=== PATIENT | female | born 1990 | race Caucasian/White ===

== ENCOUNTER 2020-01-31 13:22 | Outpatient (REF) | payer OTHER, SELFPAY | END 2020-01-31 13:23 | disposition home or self-care (01) | LOC: HO.MDS 13:22 | PROVIDERS: PCP Family Medicine; Visit Provider Internal Medicine | DX: D50.9 Iron deficiency anemia, unspecified (principal) | CPT/HCPCS: 96365; J2916 ==

== ENCOUNTER 2020-02-21 13:03 | Outpatient (REF) | payer OTHER, SELFPAY | END 2020-02-21 13:04 | disposition home or self-care (01) | LOC: HO.MDS 13:03 | PROVIDERS: PCP Family Medicine; Visit Provider Internal Medicine | DX: D50.9 Iron deficiency anemia, unspecified (principal) | CPT/HCPCS: 96365; J2916 ==

== ENCOUNTER 2020-02-28 | Outpatient (REF) | payer OTHER, SELFPAY | END 2020-02-28 00:01 | disposition home or self-care (01) | LOC: HO.MDS | PROVIDERS: PCP Family Medicine; Visit Provider Internal Medicine | DX: D50.9 Iron deficiency anemia, unspecified (principal) | CPT/HCPCS: 96365; J2916 ==

== ENCOUNTER 2020-04-29 10:14 | Outpatient (REF) | payer OTHER, SELFPAY | END 2020-04-29 10:15 | disposition home or self-care (01) | LOC: HO.LAB 10:14 | PROVIDERS: Visit Provider Internal Medicine | DX: Z20.828 Contact with and (suspected) exposure to other viral communicable diseases (principal) | CPT/HCPCS: 36415; C9803; U0003 ==

== ENCOUNTER 2020-05-03 12:50 | Emergency (ER) | payer OTHER, SELFPAY ==
[2020-05-03 13:19] VITALS: BP 125/62; PULSE 102; RESP 20; TEMP 37.2; O2SAT 94; BMI 32.9
[2020-05-03 15:22] LABS: Basophils Percent Auto 0.2 % (0-2); Hematocrit 31.9 % (37-47); Imm Gran Abs Auto 0.05 X10*3/uL (0.00-0.03); Imm Gran Pct Auto 0.8 % (0.0-0.4); Lymphocytes Absolute Auto 0.9 X10*3/uL (1.2-4.9); Lymphocytes Percent Auto 14.1 % (20-40); MANUAL DIFF FLAG NO; Mean Corpuscular HGB Conc 34.5 g/dl (31.0-35.0); Mean Corpuscular Hemoglobin 28.8 pg (27.0-33.0); Mean Corpuscular Volume 83.5 fL (80-98); Mean Platelet Volume 8.9 fL (9.4-12.3); Monocytes Absolute Auto 0.6 X10*3/uL (0.1-1.2); Monocytes Percent Auto 9.7 % (2-11); Neutrophils Absolute Auto 4.7 X10*3/uL (2.0-8.3); Neutrophils Percent Auto 75.2 % (45-73); Platelet Count 186 X10*3/uL (160-400); Red Blood Count 3.82 X10*6/uL (4.20-5.50); Red Cell Distribution Width 15.1 % (11.0-16.0); White Blood Count 6.3 X10*3/uL (4.8-10.8)
[2020-05-03] MEDS: 0.9 % Sodium Chloride 1,000 ML 999 ML IVCONT ×2 (15:24→16:38)
[2020-05-03] MEDS: Acetaminophen 325 MG TABLET 650 MG PO (15:24)
[2020-05-03 15:45] LABS: Glucose Urine UA NEG (NEG); Leukocyte Esterase Urine TRACE (NEG); Nitrite Urine NEG (NEG); Urine Blood NEG (NEG); Urine Ketones NEG (NEG); Urine Protein NEG (NEG-TRACE)
[2020-05-03 15:46] VITALS: O2SAT 97
[2020-05-03 15:46] LABS: Appearance Urine HAZY; Color Urine YELLOW
[2020-05-03 15:54] LABS: Bacteria Urine 1+ /LPF; RBC Urine 0 /HPF (0); Squamous Epithelial Cell Urine 2+ /LPF
[2020-05-03 15:56] LABS: Alanine Aminotransferase 20 U/L (0-31); Albumin Level 3.7 g/dL (3.5-5.0); Alkaline Phosphatase 98 U/L (39-117); Anion Gap 14 (12-20); Aspartate Amino Transferase 27 U/L (5-31); Bilirubin Direct < 0.2 mg/dL (0.0-0.5); Bilirubin Total 0.2 mg/dL (0.0-1.0); Blood Urea Nitrogen 4 mg/dL (9-16); Calcium 8.5 mg/dL (8.4-10.2); Carbon Dioxide 23 mmol/L (22-29); Chloride 100 mmol/L (96-108); Creatinine Clr Calc Pharmacy 148.1; Estimated Glomerular Filt Rate > 60; Glucose Random 85 mg/dL (60-115); Potassium 4.5 mmol/l (3.3-5.1); Sodium 132 mmol/L (135-145); Total Protein 6.9 g/dL (6.5-8.0)
--- NOTE | 2020-05-03 16:04 | ED_ITS ---
HPI - General Adult General Chief complaint: Upper Respiratory Symptoms Stated complaint: covid symptoms Time Seen by Provider: 05/03/20 14:06 Source: patient Mode of arrival: ambulatory Limitations: no limitations History of Present Illness HPI narrative: Patient comes to the emergency room complaining of diffuse body aches, coughing, headache, congestion for several days. Patient is a at 19 weeks of gestational age. Patient denies any abdominal cramping, no vaginal fluid or blood leakage. Patient complaining of subjective fever. Patient also complaining of nausea and vomiting, no diarrhea. Patient states that initially during this she had hyperemesis, then it resolved, a few days ago she has been vomiting again. MD complaint: Vomiting, body aches Related Data Previous Rx's Medication Instructions Recorded metoclopramide HCl 5 mg PO TID PRN #14 tab 05/03/20 Allergies Allergy/AdvReac Type Severity Reaction Status Date / Time No Known Drug Intolerances Allergy Unknown [email or web address] Unverified 01/11/20 16:44 Review of Systems Review of Systems: Constitutional : Complaining of fever, chills, fatigue, generalized body aches ENT/Mouth : No Hearing loss, No Ear Pain, No Nasal Congestion, No Sinus Pain, No Hoarseness, No sore throat, No Rhinorrhea, No Swallowing Difficulty Eyes: No Eye Pain, No Swelling, No Redness, No Foreign Body, No Discharge, No Vision Changes Cardiovascular : No Chest Pain, No SOB, No Dyspnea on Exertion, No Orthopnea, No Edema, No Palpitations Respiratory : No Cough, No Sputum, No Wheezing, No Smoke Exposure, No Dyspnea Gastrointestinal : Complaining of nausea and vomiting No Diarrhea, No Constipation, No abdominal Pain, No Hematochezia, No Melena Genitourinary : no irregular bleeding, No Dysuria, No Urinary Frequency, No Hematuria, No Urinary Incontinence, No Urgency, No Flank Pain, No Urinary Flow Changes, No Hesitancy Musculoskeletal : No joint pain, No Myalgias, No Joint Swelling Skin : No Skin Lesions, No rash Neuro : No Weakness, No Numbness, No Paresthesias, No Loss of Consciousness, No Dizziness, No Headache Psych : No Anxiety/Panic, No Depression, No SI/HI/AH/VH, No Social Issues, Heme/Lymph: No Bruising, No Bleeding,No Lymphadenopathy Endocrine : No Polyuria, No Polydipsia, No Temperature Intolerance PMFSH Past Medical History Medical History Allergic rhinitis Anxiety and depression Chronic fatigue Iron deficiency anemia Menorrhagia with irregular cycle Family History Family History (Updated 03/08/20 @ 09:45 by Madai Jorge) Family/Other Colon cancer Maternal Aunt Colon cancer Maternal Uncle Colon cancer Maternal Grandmother Breast cancer Family/Other Thrombocytopenia Social History Social History Alcohol intake: never Smoking Status: Never smoker Use of substances other than those prescribed or required for medical reasons: No Advance Directives: No Advance Directives Information Provided: No Physical Exam Vital Signs: Vital Signs: Last Vital Signs Temp 99.0 F 05/03/20 13:19 Pulse 98 05/03/20 16:21 Resp 20 05/03/20 16:21 BP 125/62 05/03/20 13:19 Pulse Ox 97 05/03/20 15:46 Body Mass Index 32.9 Appearance: Alert. Oriented X3. No acute distress. Eyes: Pupils equal, round and reactive to light. ENT: Pharynx normal. Neck: Normal inspection. Neck supple. No lymph nodes noted. No crepitus CVS: Normal heart rate and rhythm. Pulses normal. Normal S1 and S2 Respiratory: No respiratory distress. Breath sounds normal. No Wheezing. No rales Abdomen: Soft and nontender. No rigidity. No distention. Bedside ultrasound shows good movement, heart rate 140 Skin: Skin warm and dry. Normal skin color. Normal skin turgor. Extremities: No lower extremity edema. No lower extremity edema. No Lacerations. No Rash Neuro: Oriented X 3. No motor deficit. No sensory deficit. Moving all extermities. No slurred speech. Course Course Course Narrative: I discussed with the patient that she is COVID-19 positive. Patient is not hypoxic, only having generalized body aches. Is instructed to have close follow-up with her primary care physician. Chest x-ray is unremarkable, if there are any infiltrates, patient will need antibiotics. Otherwise, patient is stable, not hypoxic, may be discharged home. Medical Decision Making Lab Data Result diagrams: 05/03/20 15:15 05/03/20 15:15 Labs: Lab Results 05/03/20 05/03/20 05/03/20 Range/Units 15:15 15:15 15:15 WBC 6.3 (4.8-10.8) X10*3/uL RBC 3.82 L (4.20-5.50) X10*6/uL Hgb 11.0 L (12.0-16.0) g/dl Hct 31.9 L (37-47) % MCV 83.5 (80-98) fL MCH 28.8 (27.0-33.0) pg MCHC 34.5 (31.0-35.0) g/dl RDW 15.1 (11.0-16.0) % Plt Count 186 (160-400) X10*3/uL MPV 8.9 L (9.4-12.3) fL Immature Gran % (Auto) 0.8 H (0.0-0.4) % Neut % (Auto) 75.2 H (45-73) % Lymph % (Auto) 14.1 L (20-40) % [place] % (Auto) 9.7 (2-11) % Eos % (Auto) 0.0 (0-4) % Baso % (Auto) 0.2 (0-2) % Lymph # (Auto) 0.9 L (1.2-4.9) X10*3/uL [place] # (Auto) 0.6 (0.1-1.2) X10*3/uL Eos # (Auto) 0.0 (0.0-0.4) X10*3/uL Baso # (Auto) 0.0 (0.0-0.2) X10*3/uL Abs Immat Gran (auto) 0.05 H (0.00-0.03) X10*3/uL Absolute Neuts (auto) 4.7 (2.0-8.3) X10*3/uL Absolute Nucleated RBC 0.000 (0.0-0.012) X10*3/uL Nucleated RBC % (auto) 0.0 (0.0-0.2) /100WBC Sodium 132 L (135-145) mmol/L Potassium 4.5 (3.3-5.1) mmol/l Chloride 100 (96-108) mmol/L Carbon Dioxide 23 (22-29) mmol/L Anion Gap 14 (12-20) BUN 4 L (9-16) mg/dL Creatinine 0.55 (0.5-1.4) mg/dL Estim Creat Clear Calc 148.1 Estimated GFR > 60 Random Glucose 85 (60-115) mg/dL Calcium 8.5 (8.4-10.2) mg/dL Ferritin 102 (10-122) ng/mL Total Bilirubin 0.2 (0.0-1.0) mg/dL Direct Bilirubin < 0.2 (0.0-0.5) mg/dL AST 27 (5-31) U/L ALT 20 (0-31) U/L Alkaline Phosphatase 98 (39-117) U/L Total Protein 6.9 (6.5-8.0) g/dL Albumin 3.7 (3.5-5.0) g/dL Procalcitonin ng/mL Urine Color Urine Appearance Urine pH (5.0-8.0) Ur Specific [place] (1.005-1.025) Urine Protein (NEG-TRACE) MG/DL Urine Glucose (UA) (NEG) MG/DL Urine Ketones (NEG) MG/DL Urine Blood (NEG) Urine Nitrite (NEG) Ur Leukocyte Esterase (NEG) Urine RBC (0) /HPF Urine WBC (0-4) /HPF Ur Squamous Epith Cells /LPF Urine Bacteria /LPF Coronavirus (PCR) (Negative) Influenza Type A (PCR) (Negative) Influenza Type B (PCR) (Negative) RSV RNA Qual (PCR) (Negative) 05/03/20 05/03/20 05/03/20 Range/Units 15:15 15:15 15:30 WBC (4.8-10.8) X10*3/uL RBC (4.20-5.50) X10*6/uL Hgb (12.0-16.0) g/dl Hct (37-47) % MCV (80-98) fL MCH (27.0-33.0) pg MCHC (31.0-35.0) g/dl RDW (11.0-16.0) % Plt Count (160-400) X10*3/uL MPV (9.4-12.3) fL Immature Gran % (Auto) (0.0-0.4) % Neut % (Auto) (45-73) % Lymph % (Auto) (20-40) % [place] % (Auto) (2-11) % Eos % (Auto) (0-4) % Baso % (Auto) (0-2) % Lymph # (Auto) (1.2-4.9) X10*3/uL [place] # (Auto) (0.1-1.2) X10*3/uL Eos # (Auto) (0.0-0.4) X10*3/uL Baso # (Auto) (0.0-0.2) X10*3/uL Abs Immat Gran (auto) (0.00-0.03) X10*3/uL Absolute Neuts (auto) (2.0-8.3) X10*3/uL Absolute Nucleated RBC (0.0-0.012) X10*3/uL Nucleated RBC % (auto) (0.0-0.2) /100WBC Sodium (135-145) mmol/L Potassium (3.3-5.1) mmol/l Chloride (96-108) mmol/L Carbon Dioxide (22-29) mmol/L Anion Gap (12-20) BUN (9-16) mg/dL Creatinine (0.5-1.4) mg/dL Estim Creat Clear Calc Estimated GFR Random Glucose (60-115) mg/dL Calcium (8.4-10.2) mg/dL Ferritin (10-122) ng/mL Total Bilirubin (0.0-1.0) mg/dL Direct Bilirubin (0.0-0.5) mg/dL AST (5-31) U/L ALT (0-31) U/L Alkaline Phosphatase (39-117) U/L Total Protein (6.5-8.0) g/dL Albumin (3.5-5.0) g/dL Procalcitonin 0.03 ng/mL Urine Color YELLOW Urine Appearance HAZY Urine pH 7.0 (5.0-8.0) Ur Specific [place] 1.020 (1.005-1.025) Urine Protein NEG (NEG-TRACE) MG/DL Urine Glucose (UA) NEG (NEG) MG/DL Urine Ketones NEG (NEG) MG/DL Urine Blood NEG (NEG) Urine Nitrite NEG (NEG) Ur Leukocyte Esterase TRACE H (NEG) Urine RBC 0 (0) /HPF Urine WBC 1-4 (0-4) /HPF Ur Squamous Epith Cells 2+ /LPF Urine Bacteria 1+ /LPF Coronavirus (PCR) POSITIVE A (Negative) Influenza Type A (PCR) NEGATIVE (Negative) Influenza Type B (PCR) NEGATIVE (Negative) RSV RNA Qual (PCR) NEGATIVE (Negative) Imaging Data Chest x-ray: Radiologist's impression: FINDINGS: No significant abnormality is noted involving the heart, lungs, mediastinum, bony thorax or soft tissues. XR/XR chest 1V IMPRESSION: Unremarkable examination. Discharge Plan Discharge Clinical Impression: COVID-19 Patient Disposition: Home, Self-Care Instructions: COVID-19 (Coronavirus Disease 2019) (ED) Additional Instructions: Please follow-up with your primary care physician tomorrow. If you have any worsening or new symptoms, please return to the emergency room or call 911 Prescriptions: New metoclopramide HCl 5 mg tablet 5 mg PO TID PRN (Reason: nausea and vomiting) Qty: 14 RF: 0
[2020-05-03 16:11] LABS: Procalcitonin 0.03 ng/mL
[2020-05-03 16:12] LABS: Ferritin 102 ng/mL (10-122)
[2020-05-03 16:21] VITALS: PULSE 98; RESP 20
[2020-05-03 16:24] LABS: Influenza A PCR NEGATIVE (Negative); Influenza B PCR NEGATIVE (Negative); Resp Syncy Virus RNA Qual PCR NEGATIVE (Negative); SARS COV2 PCR INHOUSE POSITIVE (Negative)
--- NOTE | 2020-05-03 16:34 | XR_ITS ---
EXAMINATION: XR CHEST CLINICAL INFORMATION: Covid positive COMPARISON: Previous chest x-ray October 2019 TECHNIQUE: Frontal view of the chest was obtained. FINDINGS: No significant abnormality is noted involving the heart, lungs, mediastinum, bony thorax or soft tissues. XR/XR chest 1V IMPRESSION: Unremarkable examination.
[2020-05-03] MEDS: Metoclopramide HCl 10 MG/2 ML VIAL IVPUSH (16:38)
--- NOTE | 2020-05-03 16:38 | PC.NURSE ---
medicated further per emar. [facility]ctm.
== END 2020-05-03 18:17 | disposition home or self-care (01) ==
PROVIDERS: Emergency Provider Emergency Medicine
DX: O98.519 Other viral diseases complicating pregnancy, unspecified trimester (principal); U07.1 COVID-19; M79.10 Myalgia, unspecified site; R05 Cough; Z3A.19 19 weeks gestation of pregnancy
CPT/HCPCS: 0241U; 36415; 71045; 80048; 80076; 81001; 82728; 84145; 85025; 87086; 96361; 96374; 99284; 99285; J2765

== ENCOUNTER 2020-05-13 12:01 | Outpatient (REF) | payer OTHER, SELFPAY | END 2020-05-13 12:02 | disposition home or self-care (01) | LOC: HO.LAB 12:01 | PROVIDERS: Visit Provider Internal Medicine | DX: Z20.822 Contact with and (suspected) exposure to COVID-19 (principal) | CPT/HCPCS: 36415; C9803; U0003 ==

== ENCOUNTER 2020-05-27 12:38 | Outpatient (REF) | payer OTHER, SELFPAY | END 2020-05-27 12:39 | disposition home or self-care (01) | LOC: HO.LAB 12:38 | PROVIDERS: Visit Provider Internal Medicine | DX: Z20.822 Contact with and (suspected) exposure to COVID-19 (principal) | CPT/HCPCS: 36415; C9803; U0003; U0005 ==

== ENCOUNTER 2020-09-20 12:28 | Emergency (ER) | payer OTHER, SELFPAY ==
[2020-09-20] VITALS (7 sets, daily range): BP systolic 119–174; BP diastolic 55–85; PULSE 64–77; RESP 16–18; TEMP 36.8; O2SAT 97–98; BMI 34.5
--- NOTE | 2020-09-20 12:52 | ED_ITS ---
HPI - Headache General Chief Complaint: Headache Stated Complaint: MIGRAINE Time Seen by Provider: 09/20/20 12:52 Source: patient Mode of arrival: ambulatory Limitations: no limitations History of Present Illness HPI Narrative: 29 yo female s/p days post on 09/[address] [facility] at 38.5 no issues during notes afterwards 3 to 4 days headache, LE swelling, upper abdominal pain no prior issues during other pregnancies states no prior HTN, tried to call clinic yesterday but no call back MD elicited complaint: headache Pertinent past history: other (s/p on 09/14 at 38.5) Onset (ago): day(s) (4) Onset description: gradually Location: diffuse Severity: moderate Quality & Timing: aching, dull and constant Exacerbating factors: none Relieving factors: nothing Context: occurred at rest Associated symptoms: other (upper abdominal pain, dyspnea, LE edema) Treatments prior to arrival: none Related Data Previous Rx's Medication Instructions Recorded metoclopramide HCl 5 mg PO TID PRN #14 tab 05/03/20 Allergies Allergy/AdvReac Type Severity Reaction Status Date / Time No Known Drug Intolerances Allergy Unknown [email or web address] Verified 09/20/20 12:39 Review of Systems Review of Systems: Constitutional : No Weight loss, No Fever, No Chills, pos Fatigue, No Malaise ENT/Mouth : No sore throat, No Rhinorrhea Eyes: No Eye Pain, No Swelling, No Redness Cardiovascular : No Chest Pain, pos SOB, No Dyspnea on Exertion, No Orthopnea, pos Edema, No Palpitations Respiratory : No Cough, No Sputum, No Wheezing Gastrointestinal : No Nausea, No Vomiting, No Diarrhea, No Constipation, pos abdominal Pain, No Hematochezia, No Melena Genitourinary : No Dysuria, No Urinary Frequency, No Hematuria, Musculoskeletal : No joint pain, No Myalgias, No Joint Swelling Skin : No Skin Lesions, No rash Neuro : No Weakness, No Numbness, No Dizziness, pos Headache Psych : No Anxiety/Panic, No Depression Heme/Lymph: No Bruising, No Bleeding,No Lymphadenopathy Endocrine : No Polyuria, No Polydipsia All other systems reviewed and are negative PMFSH Past Medical History Medical History Allergic rhinitis Anxiety and depression Chronic fatigue Iron deficiency anemia Menorrhagia with irregular cycle Family History Family History Family/Other Colon cancer Maternal Aunt Colon cancer Maternal Uncle Colon cancer Maternal Grandmother Breast cancer Family/Other Thrombocytopenia Social History Social History Alcohol intake: never Patient Tobacco Use Status: Never used Tobacco Use of substances other than those prescribed or required for medical reasons: No Advance Directives: Yes Advance Directives Information Provided: Yes Advance Directives on File: No Patient : No Physical Exam Vital Signs: Vital Signs: Last Vital Signs Temp 98.3 F 09/20/20 12:39 Pulse 77 09/20/20 13:48 Resp 16 09/20/20 13:48 BP 129/68 09/20/20 13:48 Pulse Ox 97 09/20/20 13:48 Body Mass Index 34.5 Appearance: Alert. Oriented X3. Mild acute distress. Anxious Eyes: Pupils equal, round and reactive to light. ENT: Pharynx normal. Neck: Normal inspection. Neck supple. CVS: Normal heart rate and rhythm. Pulses normal. Respiratory: No respiratory distress. Breath sounds normal. no rales heard Abdomen: Soft and mild epigastric ttp no rebound or guarding Skin: Skin warm and dry. pale skin color. Normal skin turgor. Extremities: pos 1+ lower extremity edema. No calf ttp Neuro: Oriented X 3. No motor deficit. No sensory deficit. Course Course Course Narrative: stat call to pharmacy for magnesium loading and continuous infusion - they are getting medications now HR in 60s IV labetalol started call to [facility] 107pm for possible transfer vs [facility] Dr. Mchugh in ED, aware of plan, send to [facility] as [facility] does not take care of severe features on magnesium post attending at [facility] agrees tranasfer to [facility] repeat call to pharmacy for magnesium 116pm call to [facility] Dr. Mchugh at bedside as well after 10mg IV labetalol BP now 139/64, will continue to monitor HR in 60s will likely give hydralazine 5mg if BP increases accepted transfer to [facility] by Dr. Geiger under Dr. Clark at 125pm BP 129/68 on DC on mag drip, given labetalol with good response so far MDM - Headache MDM Narrative Medical decision making narrative: 29 yo female uncomplicated s/p delivery on 09/14 at 38.5 here with severe features of preeclampsia upper abdominal pain, LE edema, dyspnea, headaches - stat call to OB, loading dose of IV magnesium/continuous rate, IV labetalol, plan to transfer to center with OB likely [facility] given severe features Lab Data Result diagrams: 09/20/20 13:08 Labs: Lab Results 09/20/20 09/20/20 09/20/20 Range/Units 13:08 13:08 13:08 WBC 8.1 (4.8-10.8) X10*3/uL RBC 3.74 L (4.20-5.50) X10*6/uL Hgb 10.3 L (12.0-16.0) g/dl Hct 31.4 L (37-47) % MCV 84.0 (80-98) fL MCH 27.5 (27.0-33.0) pg MCHC 32.8 (31.0-35.0) g/dl RDW 13.8 (11.0-16.0) % Plt Count 283 D (160-400) X10*3/uL MPV 9.5 (9.4-12.3) fL Immature Gran % (Auto) 0.9 H (0.0-0.4) % Neut % (Auto) 73.4 H (45-73) % Lymph % (Auto) 19.0 L (20-40) % [place] % (Auto) 5.8 (2-11) % Eos % (Auto) 0.7 (0-4) % Baso % (Auto) 0.2 (0-2) % Lymph # (Auto) 1.5 (1.2-4.9) X10*3/uL [place] # (Auto) 0.5 (0.1-1.2) X10*3/uL Eos # (Auto) 0.1 (0.0-0.4) X10*3/uL Baso # (Auto) 0.0 (0.0-0.2) X10*3/uL Abs Immat Gran (auto) 0.07 H (0.00-0.03) X10*3/uL Absolute Neuts (auto) 5.9 (2.0-8.3) X10*3/uL Absolute Nucleated RBC 0.000 (0.0-0.012) X10*3/uL Nucleated RBC % (auto) 0.0 (0.0-0.2) /100WBC PT 12.3 (10.8-13.0) SEC INR 1.0 (0.9-1.1) APTT 32.8 (24.1-38.0) SEC Magnesium 2.0 (1.6-2.6) mg/dL Total Bilirubin 0.2 (0.0-1.0) mg/dL Direct Bilirubin < 0.2 (0.0-0.5) mg/dL AST 32 H (5-31) U/L ALT 46 H (0-31) U/L Alkaline Phosphatase 193 H D (39-117) U/L Lactate Dehydrogenase 260 H (122-220) U/L Troponin I High Sens (<3.5-17.0) ng/L B-Natriuretic Peptide (<100) pg/mL Total Protein 6.5 (6.5-8.0) g/dL Albumin 3.5 (3.5-5.0) g/dL Lipase 27 (8-78) U/L Urine Color Urine Appearance Urine pH (5.0-8.0) Ur Specific [place] (1.005-1.025) Urine Protein (NEG-TRACE) MG/DL Urine Glucose (UA) (NEG) MG/DL Urine Ketones (NEG) MG/DL Urine Blood (NEG) Urine Nitrite (NEG) Ur Leukocyte Esterase (NEG) Urine RBC (0) /HPF Urine WBC (0-4) /HPF Ur Squamous Epith Cells /LPF Urine Bacteria /LPF COVID-19 (ANTHONY) (Negative) COVID-19 Clin Com 09/20/20 09/20/20 09/20/20 Range/Units 13:08 13:08 13:27 WBC (4.8-10.8) X10*3/uL RBC (4.20-5.50) X10*6/uL Hgb (12.0-16.0) g/dl Hct (37-47) % MCV (80-98) fL MCH (27.0-33.0) pg MCHC (31.0-35.0) g/dl RDW (11.0-16.0) % Plt Count (160-400) X10*3/uL MPV (9.4-12.3) fL Immature Gran % (Auto) (0.0-0.4) % Neut % (Auto) (45-73) % Lymph % (Auto) (20-40) % [place] % (Auto) (2-11) % Eos % (Auto) (0-4) % Baso % (Auto) (0-2) % Lymph # (Auto) (1.2-4.9) X10*3/uL [place] # (Auto) (0.1-1.2) X10*3/uL Eos # (Auto) (0.0-0.4) X10*3/uL Baso # (Auto) (0.0-0.2) X10*3/uL Abs Immat Gran (auto) (0.00-0.03) X10*3/uL Absolute Neuts (auto) (2.0-8.3) X10*3/uL Absolute Nucleated RBC (0.0-0.012) X10*3/uL Nucleated RBC % (auto) (0.0-0.2) /100WBC PT (10.8-13.0) SEC INR (0.9-1.1) APTT (24.1-38.0) SEC Magnesium (1.6-2.6) mg/dL Total Bilirubin (0.0-1.0) mg/dL Direct Bilirubin (0.0-0.5) mg/dL AST (5-31) U/L ALT (0-31) U/L Alkaline Phosphatase (39-117) U/L Lactate Dehydrogenase (122-220) U/L Troponin I High Sens < 3.5 (<3.5-17.0) ng/L B-Natriuretic Peptide 79 (<100) pg/mL Total Protein (6.5-8.0) g/dL Albumin (3.5-5.0) g/dL Lipase (8-78) U/L Urine Color DARK YELLOW Urine Appearance CLOUDY Urine pH 6.0 (5.0-8.0) Ur Specific [place] 1.025 (1.005-1.025) Urine Protein 2+ H (NEG-TRACE) MG/DL Urine Glucose (UA) NEG (NEG) MG/DL Urine Ketones NEG (NEG) MG/DL Urine Blood 3+ H (NEG) Urine Nitrite NEG (NEG) Ur Leukocyte Esterase 1+ H (NEG) Urine RBC TNTC H (0) /HPF Urine WBC 5-9 H (0-4) /HPF Ur Squamous Epith Cells 1+ /LPF Urine Bacteria NONE /LPF COVID-19 (ANTHONY) Negative (Negative) COVID-19 Clin Com See Note ECG Data Attestation: I personally reviewed and interpreted this ECG as follows: ECG interpretation date: 09/20/20 ECG interpretation time: 13:32 Interpretation: Rate: 62 Rhythm: NSR [place]: normal Normal P waves. Normal CESAR. Normal QRS complex. ST T wave : normal no PRADEEP qTC: normal prior studies: no acute ischemia The study has been interpreted contemporaneously by me. . Critical Care Time Critical Care Time Critical Care Time: Yes Total Critical Care Time: 60 Attestation: IV medications, medical consult, bedside reassessments, transfer to tertiary center I attest to this time spent taking care of the patient Discharge Plan Discharge Clinical Impression: Pre-eclampsia Qualifiers: Trimester: unspecified trimester Qualified Code(s): O14.90 - Unspecified pre- eclampsia, unspecified trimester Patient Disposition: Xfer [facility] Transfer Details: [facility] Prescriptions: No Action metoclopramide HCl 5 mg tablet 5 mg PO TID PRN (Reason: nausea and vomiting) Qty: 14 RF: 0
--- NOTE | 2020-09-20 13:00 | ECG_ITS ---
Test Reason : HEADACHE Blood Pressure : / mmHG Vent. Rate : 062 BPM Atrial Rate : 062 BPM P-R Int : 112 ms QRS Dur : 078 ms QT Int : 388 ms P-R-T Axes : 047 038 038 degrees QTc Int : 393 ms Normal sinus rhythm Normal ECG When compared with ECG of 18-APR-2018 01:07, No significant change was found Referred By: Tavia Titus Electronically Signed By:DIPTI PEREZ
[2020-09-20 13:16] LABS: Basophils Percent Auto 0.2 % (0-2); Eosinophils Absolute Auto 0.1 X10*3/uL (0.0-0.4); Eosinophils Percent Auto 0.7 % (0-4); Hematocrit 31.4 % (37-47); Hemoglobin 10.3 g/dl (12.0-16.0); Imm Gran Abs Auto 0.07 X10*3/uL (0.00-0.03); Imm Gran Pct Auto 0.9 % (0.0-0.4); Lymphocytes Absolute Auto 1.5 X10*3/uL (1.2-4.9); MANUAL DIFF FLAG NO; Mean Corpuscular HGB Conc 32.8 g/dl (31.0-35.0); Mean Corpuscular Hemoglobin 27.5 pg (27.0-33.0); Mean Platelet Volume 9.5 fL (9.4-12.3); Monocytes Absolute Auto 0.5 X10*3/uL (0.1-1.2); Monocytes Percent Auto 5.8 % (2-11); Neutrophils Absolute Auto 5.9 X10*3/uL (2.0-8.3); Neutrophils Percent Auto 73.4 % (45-73); Platelet Count 283 X10*3/uL (160-400); Red Blood Count 3.74 X10*6/uL (4.20-5.50); Red Cell Distribution Width 13.8 % (11.0-16.0); White Blood Count 8.1 X10*3/uL (4.8-10.8)
[2020-09-20] MEDS: Labetalol HCL 100 MG/20 ML VIAL 10 MG IVPUSH (13:18)
[2020-09-20 13:24] LABS: Prothrombin Time 12.3 SEC (10.8-13.0)
[2020-09-20 13:27] LABS: Partial Thromboplastin Time 32.8 SEC (24.1-38.0)
[2020-09-20 13:32] LABS: COVID-19 Test Negative (Negative)
--- NOTE | 2020-09-20 13:32 | PC.NURSE ---
[facility] called to see if patient would be accepted there. Spoke with Dr Ybarra. Recommended transfer to [facility] Dr Mchugh at bedside with Dr Titus and patient. Plan is to transfer to [facility], transfer line called. Awaiting accpeting MD and bed placement on [place]
--- NOTE | 2020-09-20 13:33 | P.CONOB_ITS ---
MEAT SEAFOOD ASSOCIATE - CN: HPI Data of Consult Consult date: 09/20/20 Primary Care Provider: Unknown Physician Consult Narrative Narrative: I was called on Tammy Langford who is a 29 year old female 4 days who presented the emergency room complaining of 4 day history of headache, blurring of vision, swelling, epigastric and right upper quadrant pain. The patient did not have any hypertensive complications throughout or immediate . No other complaints cc:: CC: [employer]IATION MEDICINE SPECIALIST - Review of Systems Review of Systems ROS Unobtainable: All systems reviewed & are unremarkable except as noted in HPI and below Cardiovascular: Denies Palpatations, Loss of consciousness and Chest pain Respiratory: Denies Cough, Wheezing and Shortness of breath Musculoskeletal: Denies Low back pain Gastrointestinal: Denies Heartburn, Constipation, Diarrhea, Nausea and Vomiting Genitourinary: Denies Pain with urination, Burning with urination and Urinary frequency Neurological: Denies Migranes Psychological: Denies Depression OB PMFSH Past Medical History Medical History Allergic rhinitis Anxiety and depression Chronic fatigue Iron deficiency anemia Menorrhagia with irregular cycle Family History Family History Family/Other Colon cancer Maternal Aunt Colon cancer Maternal Uncle Colon cancer Maternal Grandmother Breast cancer Family/Other Thrombocytopenia Social History Social History Alcohol intake: never Advance Directives: Yes Advance Directives Information Provided: Yes Advance Directives on File: No Patient : No Meds Allergies Allergy/AdvReac Type Severity Reaction Status Date / Time No Known Drug Intolerances Allergy Unknown [email or web address] Verified 09/20/20 12:39 Active Medications: Current Medications Generic Name Dose Route Start Last Admin Trade Name Freq PRN Reason Stop Dose Admin Magnesium Sulfate 20 gm in 500 mls @ 25 mls/hr 09/20/20 13:22 IV 09/21/20 09:21 NOW STA MEAT SEAFOOD ASSOCIATE Physical Exam Vitals Vital signs: Temp Pulse Resp BP Pulse Ox 98.3 F 70 16 139/64 98 09/20/20 12:39 09/20/20 13:30 09/20/20 13:30 09/20/20 13:30 09/20/20 13:30 Body Mass Index 34.5 Constitutional General Appearance: Healthy appearing, Well-nourished and Well-developed Psychiatric Mood and Affect: active and alert, normal mood and normal affect Skin Appearance: No rashes and No lesions Lungs Respiratory Effort: No intercostal retractions Auscultation: Clear to auscultation Cardiovascular Auscultation: RRR Abdomen Auscultation/Inspection/Palpation: Normal bowel sounds, Soft, Non-distended and Tenderness (Epigastric and right upper quadrant tenderness) Female Genitalia (Pelvic) Exam: Deferred Additional Comments: Lower extremity +3 edema MEAT SEAFOOD ASSOCIATE - Results Labs CBC & Chem 7: 09/20/20 13:08 Labs: Short CBC 09/20/20 Range/Units 13:08 WBC 8.1 (4.8-10.8) X10*3/uL Hgb 10.3 L (12.0-16.0) g/dl Hct 31.4 L (37-47) % Plt Count 283 D (160-400) X10*3/uL Assessment and Plan (1) Preeclampsia in period: Status: Acute PIH workup, labetolol 20 mg IV now , repeat BP in 10 min if in the severe range =>160/and / or 110, Labetolol 40 mg IV or hydralazine 5 mg depending on the heart rate, BP q 10 in x1, Q15 in x1, q 30 x1 and Q1 x 4 hours afterwardrs, start MgSO4 4 g loading dose, 2 g/.hr, Lilly catheterr, total in 120 cc/hr, I/O, transfer to [facility] patient was accepted. Discussed the case with Dr. Tavia Titus in the emergency room
--- NOTE | 2020-09-20 13:36 | PC.NURSE ---
This RN to bedside with Dr Titus and Dr Mchugh. Pt warm to touch, skin pale and clammy. Pt hypertensive, NSR on monitor rate 60-702. Pt tearful and reassured. Reports no headache at this time but states blurred vision but also rpeorts usually wars glasses. Mild BLE edema noted. Two IV lines established, labs sent. COVID now obtained. Magnesiums 4 gm given as ordered and Labtalol given for BP control. Plan for [facility] transfer
[2020-09-20 13:39] LABS: Alanine Aminotransferase 46 U/L (0-31); Albumin Level 3.5 g/dL (3.5-5.0); Alkaline Phosphatase 193 U/L (39-117); Aspartate Amino Transferase 32 U/L (5-31); Bilirubin Direct < 0.2 mg/dL (0.0-0.5); Bilirubin Total 0.2 mg/dL (0.0-1.0); Lactate Dehydrogenase 260 U/L (122-220); Lipase 27 U/L (8-78); Total Protein 6.5 g/dL (6.5-8.0)
[2020-09-20 13:40] LABS: Glucose Urine UA NEG (NEG); Leukocyte Esterase Urine 1+ (NEG); Nitrite Urine NEG (NEG); Specific Gravity - Urine 1.025 (1.005-1.025); UACC Culture Trigger YES; Urine Blood 3+ (NEG); Urine Ketones NEG (NEG); Urine Protein 2+ MG/DL (NEG-TRACE)
[2020-09-20 13:42] LABS: Appearance Urine CLOUDY; Color Urine DARK YELLOW
[2020-09-20 13:45] LABS: B Type Natriuretic Peptide 79 pg/mL (<100); Troponin-I High Sensitivity < 3.5 ng/L (<3.5-17.0)
--- NOTE | 2020-09-20 13:49 | PC.NURSE ---
[facility] [phone]
[2020-09-20 13:53] LABS: RBC Urine TNTC /HPF (0); Squamous Epithelial Cell Urine 1+ /LPF
--- NOTE | 2020-09-20 14:11 | PC.NURSE ---
Pt transported via EMS. Report given to receiving nurse Cherise, Rn at [facility]
== END 2020-09-20 14:14 | disposition short-term general hospital (02) ==
PROVIDERS: Emergency Provider Emergency Medicine
DX: O14.95 Unspecified pre-eclampsia, complicating the puerperium (principal); Z20.822 Contact with and (suspected) exposure to COVID-19; R51.9 Headache, unspecified; R60.0 Localized edema
CPT/HCPCS: 36415; 80076; 81001; 81003; 83615; 83690; 83735; 83880; 84484; 85025; 85610; 85730; 87086; 87635; 93005; 96365; 96366; 96374; 99285; 99291; J3475

== ENCOUNTER → 2021-03-06 11:28 | Outpatient (BNV) | payer OTHER, SELFPAY | PROVIDERS: PCP Nurse Practitioner; Visit Provider Internal Medicine | DX: D50.9 Iron deficiency anemia, unspecified (principal) | CPT/HCPCS: 99213; 99214 ==

== ENCOUNTER 2021-03-27 08:23 | Outpatient (REF) | payer OTHER, SELFPAY | END 2021-03-27 08:24 | disposition home or self-care (01) | LOC: HO.MDS 08:23 | PROVIDERS: PCP Nurse Practitioner; Visit Provider Internal Medicine | DX: D50.9 Iron deficiency anemia, unspecified (principal); F41.8 Other specified anxiety disorders | CPT/HCPCS: 96365; 96366; J1200; J1750; Q0163 ==

== ENCOUNTER 2021-04-08 12:35 | Outpatient (REF) | payer OTHER, SELFPAY ==
[2021-04-08 13:13] LABS: COVID-19 Test Negative (Negative)
== END 2021-04-08 12:36 | disposition home or self-care (01) ==
LOC: HO.LAB 12:35
PROVIDERS: Visit Provider Internal Medicine
DX: Z20.822 Contact with and (suspected) exposure to COVID-19 (principal)
CPT/HCPCS: 36415; 87635; C9803

== ENCOUNTER 2021-07-19 18:13 | Emergency (ER) | payer OTHER, SELFPAY ==
[2021-07-19 18:24] VITALS: BP 130/77; PULSE 84; RESP 16; TEMP 36.8; O2SAT 99; BMI 35.1
--- NOTE | 2021-07-19 19:57 | ED_ITS ---
HPI - Headache General Chief Complaint: Headache Stated Complaint: migrane since wednesday/coughing Time Seen by Provider: 07/19/21 19:57 Source: patient Mode of arrival: ambulatory Limitations: no limitations History of Present Illness HPI Narrative: Patient history of migraines takes sumatriptan been having headache for last 5 days localized mostly on the right side as usual in the past with light sensitivity and nausea patient took her to trip and today also without much relief no head injury no fever Related Data Home Medications Medication Instructions Recorded Confirmed clonazepam 1 mg tablet 1 tab PO BID PRN 03/06/21 06/09/21 ibuprofen 800 mg tablet 1 tab PO TID 03/06/21 06/09/21 sumatriptan succinate 50 mg tablet 50 mg PO BID PRN 03/06/21 06/09/21 venlafaxine 37.5 mg 1 cap PO DAILY 03/06/21 06/09/21 capsule,extended release 24 hr Previous Rx's Medication Instructions Recorded sgulbmavyj-fgjpzakmorosx-hgnwwbpk 1 cap PO Q6H PRN #20 cap 07/19/21 50 mg-300 mg-40 mg capsule (Fioricet) Allergies Allergy/AdvReac Type Severity Reaction Status Date / Time No Known Drug Intolerances Allergy Unknown nkda Verified 07/19/21 18:24 Review of Systems Review of Systems: Yes all other systems are reviewed and are negative PMFSH Past Medical History Medical History Allergic rhinitis Anxiety and depression delivery delivered Chronic fatigue Iron deficiency anemia Menorrhagia with irregular cycle Surgical History Hx of appendectomy Hx of tonsillectomy Family History Family History Family/Other Colon cancer Maternal Aunt Colon cancer Maternal Uncle Colon cancer Maternal Grandmother Breast cancer Family/Other Thrombocytopenia Family/Other Liver cancer Social History Social History Alcohol intake: never Patient Tobacco Use Status: Never used Tobacco Advance Directives: No Advance Directives Information Provided: No Physical Exam Vital Signs: Vital Signs: Last Vital Signs Temp 98.3 F 07/19/21 18:24 Pulse 84 07/19/21 18:24 Resp 16 07/19/21 18:24 BP 130/77 07/19/21 18:24 Pulse Ox 99 07/19/21 18:24 BMI result Body Mass Index 35.1 Appearance: Alert. Oriented X3. No acute distress. Eyes: PERRLA, No Nystagmus ENT: Pharynx normal. Oral Mucosa moist no temporal artery tenderness Neck: Normal inspection. Neck supple. CVS: Normal heart rate and rhythm. Pulses normal. Respiratory: No respiratory distress. Equal air entry bilateral, no wheezing/ rales/rhonchi Abdomen: Soft and nontender. Bowel sounds are present, no mass palpable, no CVA tenderness Skin: Skin warm and dry. Normal skin color. Normal skin turgor. Extremities: No lower extremity edema. No calf tenderness Neuro: Oriented X 3. No motor deficit. No sensory deficit.No cerebellar signs , cranial nerves II-XII intact MDM - Headache MDM Narrative Medical decision making narrative: Patient responded to medications felt better discharge without any headache will discharge patient home on Fioricet Differential Diagnosis Differential diagnosis: Likely migraine Lab Data Labs: Lab Results 07/19/21 Range/Units 19:34 COVID-19 (ANTHONY) Negative (Negative) COVID-19 Clin Com See Note Discharge Plan Discharge Clinical Impression: Migraine Patient Disposition: Home, Self-Care Instructions: Migraine Headache (ED) Additional Instructions: Rest at home Continue medication for migraine headaches Fioricet 1 tablet every 6 hours for persistent headache Prescriptions: New hoplacwlir-haadinccxmnup-tzri [Fioricet] 50-300-40 mg capsule 1 cap PO Q6H PRN (Reason: headache) Qty: 20 0RF No Action venlafaxine 37.5 mg capsule,extended release 24hr 1 cap PO DAILY 0RF clonazepam 1 mg tablet 1 tab PO BID PRN (Reason: Anxiety) 0RF sumatriptan succinate 50 mg tablet 50 mg PO BID PRN (Reason: Headache) 0RF Rx Instructions: Take 1 tab for migraine HAWKINS, may repeat dose after 3 hrs if needed ibuprofen 800 mg tablet 1 tab PO TID 0RF Interventions: ED Discharge Assessment Last Done: 07/19/21 21:31
[2021-07-19 20:04] LABS: COVID-19 Test Negative (Negative)
[2021-07-19] MEDS: Ketorolac Tromethamine 30 MG/ML VIAL IVPUSH (20:15)
[2021-07-19] MEDS: Metoclopramide HCl 10 MG/2 ML VIAL IVPUSH (20:15)
[2021-07-19] MEDS: diphenhydrAMINE HCL 50 MG/ML VIAL 25 MG IVPUSH (20:15)
== END 2021-07-19 21:33 | disposition home or self-care (01) ==
PROVIDERS: Emergency Provider Internal Medicine; PCP Nurse Practitioner
DX: G43.909 Migraine, unspecified, not intractable, without status migrainosus (principal); Z20.822 Contact with and (suspected) exposure to COVID-19; D50.9 Iron deficiency anemia, unspecified; Z79.899 Other long term (current) drug therapy
CPT/HCPCS: 87635; 96374; 96375; 99283; 99284; J1200; J1885; J2765

== ENCOUNTER 2021-11-20 12:57 | Outpatient (REF) | payer OTHER, SELFPAY ==
--- NOTE | 2021-11-20 | PFT_ITS ---
FLOWS: FEV1 103% of predicted at 3.06 L. FVC 100% of predicted at 3.51 L. FEV1 to FVC ratio of 0.87. No bronchodilator response except in small to medium airways. LUNG VOLUMES: Total lung capacity 92% of predicted at 4.39 L. Residual volume 63% of predicted at 0.84 L. Slow vital capacity 103% of predicted at 3.55 L. Expiratory reserve volume 78% of predicted at 0.99 L. Diffusion capacity is normal. IMPRESSION: No obstructive or restrictive ventilatory defect. No bronchodilator response except in small to medium airways. Javi Moura MD AP/MODL / [id number]
== END 2021-11-20 12:58 | disposition home or self-care (01) ==
LOC: HO.RESP 12:57
PROVIDERS: PCP Nurse Practitioner; Visit Provider Nurse Practitioner
DX: R06.02 Shortness of breath (principal)
CPT/HCPCS: 94060; 94727; 94729

== ENCOUNTER 2022-07-13 12:06 | Emergency (ER) | payer OTHER, SELFPAY ==
--- NOTE | ~2022-07-13 | CT_ITS ---
EXAMINATION: CT HEAD WITHOUT CONTRAST CLINICAL INFORMATION: Severe headache. COMPARISON: None. TECHNIQUE: Contiguous axial imaging was performed from the skullbase to vertex without intravenous administration of contrast. This CT examination was performed using dose optimization techniques as appropriate, variously including the following: *Automated exposure control *Adjustment of mA and/or kV according to patient size (this includes techniques or standardized protocols for targeted exams where dose is matched to indication/reason for exam; i.e. extremities or head) *Use of iterative reconstruction technique DLP: 670 mGy-cm. FINDINGS: There is no evidence of acute intracranial hemorrhage or territorial infarction. No abnormal mass effect or midline shift is seen. Flower to white matter differentiation is well preserved. No extra-axial fluid collections are identified. The ventricles are normal in size. There is no abnormal attenuation within the brain parenchyma. The osseous structures and soft tissues are normal. The mastoid air cells are well aerated. There is a 2 cm retention cyst in the left sphenoid sinus and mild mucosal thickening in the posterior ethmoid air cells. CT/CT head/brain wo IV con IMPRESSION: No acute intracranial pathology.
--- NOTE | 2022-07-13 12:23 | ED.HA ---
HPI - Headache General Chief Complaint: Headache <BRADY Floyd - Last Filed: 07/13/22 12:27> Stated Complaint: Migraine x3 Days <BRADY Floyd - Last Filed: 07/13/22 12:27> Time Seen by Provider: 07/13/22 16:00 <BRADY Floyd - Last Filed: 07/13/22 12:27> Source: patient <Jacqueline Tejeda NP - Last Filed: 07/13/22 17:07> Mode of arrival: ambulatory <Jacqueline Tejeda NP - Last Filed: 07/13/22 17:07> Limitations: no limitations <Jacqueline Tejeda NP - Last Filed: 07/13/22 17:07> History of Present Illness HPI Narrative: 31-year-old female presents with 3 days of a migraine headache. Reports that she also has right-sided eye drooping and hearing which is new for her. <Jacqueline Tejeda NP - Last Filed: 07/13/22 17:07> MD elicited complaint: migraine <Jacqueline Tejeda NP - Last Filed: 07/13/22 17:07> Onset (ago): day(s) (3) <Jacqueline Tejeda NP - Last Filed: 07/13/22 17:07> Onset description: gradually <Jacqueline Tejeda NP - Last Filed: 07/13/22 17:07> Location: right <Jacqueline Tejeda NP - Last Filed: 07/13/22 17:07> Severity: severe <Jacqueline Tejeda NP - Last Filed: 07/13/22 17:07> Pain scale (0-10): 10 <Jacqueline Tejeda NP - Last Filed: 07/13/22 17:07> Quality & Timing: throbbing, squeezing, constant, pressure and different than previous headaches <Jacqueline Tejeda NP - Last Filed: 07/13/22 17:07> Exacerbating factors: none <Jacqueline Tejeda NP - Last Filed: 07/13/22 17:07> Relieving factors: nothing <Jacqueline Tejeda NP - Last Filed: 07/13/22 17:07> Context: occurred at rest <Jacqueline Tejeda NP - Last Filed: 07/13/22 17:07> Associated symptoms: photophobia, sensitivity to sound and eye pain <Jacqueline Tejeda NP - Last Filed: 07/13/22 17:07> Treatments prior to arrival: acetaminophen, ibuprofen, prescription analgesic and migraine medication <Jacqueline Tejeda NP - Last Filed: 07/13/22 17:07> Related Data Home Medications: Home Medications Medication Instructions Recorded Confirmed clonazepam 1 mg tablet 1 tab PO BID PRN Anxiety 03/06/21 06/16/22 ibuprofen 800 mg tablet 1 tab PO TID 03/06/21 06/16/22 sumatriptan succinate 50 mg tablet 50 mg PO BID PRN Headache 03/06/21 06/16/22 (Imitrex) venlafaxine 37.5 mg 1 cap PO DAILY 03/06/21 06/16/22 capsule,extended release 24 hr (Effexor XR) diphenhydramine HCl 25 mg capsule 2 cap PO Q4-6H PRN itch 06/16/22 06/16/22 (Banophen) docusate sodium 100 mg capsule 1 cap PO BID 06/16/22 06/16/22 ferrous sulfate 325 mg (65 mg 1 tab PO BID 06/16/22 06/16/22 iron) tablet Previous Rx's Medication Instructions Recorded ugezjvfgna-sydqqqwrvtoiz-sbgvwftv 1 cap PO Q4-6H PRN migraine 07/13/22 50 mg-300 mg-40 mg capsule headache #10 caps (Fioricet) diphenhydramine HCl 25 mg capsule 25 mg PO TID PRN nausea and 07/13/22 (Benadryl) vomiting #10 caps metoclopramide HCl 10 mg tablet 10 mg PO Q6H PRN nausea and 07/13/22 (Reglan) vomiting #10 tabs <BRADY Floyd - Last Filed: 07/13/22 12:27> Allergies/Adverse Reactions: Allergies Allergy/AdvReac Type Severity Reaction Status Date / Time No Known Drug Intolerances Allergy Unknown nkda Verified 07/19/21 18:24 <BRADY Floyd - Last Filed: 07/13/22 12:27> Review of Systems Review of Systems: Constitutional: No Fever, No Chills Cardiovascular: No Chest Pain, No SOB Respiratory: No Cough, No Dyspnea Gastrointestinal: Positive Nausea, No Vomiting, No Diarrhea, No abdominal Pain Genitourinary: No Dysuria, No Hematuria Musculoskeletal: No joint pain, No Myalgias, No Joint Swelling Skin: No Skin lacerations, No rash Neuro: No Weakness, No Numbness, No Paresthesias, No Loss of Consciousness, No Dizziness, positive Headache <Jacqueline Tejeda NP - Last Filed: 07/13/22 17:07> Yes all other systems are reviewed and are negative <Jacqueline Tejeda NP - Last Filed: 07/13/22 17:07> FOR[facility]LY [facility], [facility] Past Medical History Attestation statement: The following information was validated with the patient. <Jacqueline Tejeda NP - Last Filed: 07/13/22 17:07> Source: old records reviewed <Jacqueline Tejeda NP - Last Filed: 07/13/22 17:07> Medical History: Medical History Allergic rhinitis Anxiety and depression delivery delivered Chronic fatigue Iron deficiency anemia Menorrhagia with irregular cycle <BRADY Floyd - Last Filed: 07/13/22 12:27> Surgical History: Surgical History Hx of appendectomy Hx of tonsillectomy <BRADY Floyd - Last Filed: 07/13/22 12:27> Family History Family History: Family History Family/Other Colon cancer Maternal Aunt Colon cancer Maternal Uncle Colon cancer Maternal Grandmother Breast cancer Family/Other Thrombocytopenia Family/Other Liver cancer <BRADY Floyd - Last Filed: 07/13/22 12:27> Social History Social History: Social History Household Members: Children Housing: Apartment Alcohol intake: unknown Patient Tobacco Use Status: Never used Tobacco Smoked in Last 30 Days: No Use of substances other than those prescribed or required for medical reasons: Unknown Advance Directives: No Advance Directives Information Provided: No Patient : No service: No Current occupational status: unemployed <BRADY Floyd - Last Filed: 07/13/22 12:27> Physical Exam Vital Signs: Vital Signs: Last Vital Signs Temp 98.3 F 07/13/22 16:00 Pulse 70 07/13/22 16:00 Resp 18 07/13/22 16:00 BP 130/77 07/13/22 16:00 Pulse Ox 100 07/13/22 16:00 O2 Del Method 07/13/22 16:00 BMI result Body Mass Index 35.1 <BRADY Floyd - Last Filed: 07/13/22 12:27> Vital Signs: Last Vital Signs Temp 98.3 F 07/13/22 16:00 Pulse 70 07/13/22 16:00 Resp 18 07/13/22 16:00 BP 130/77 07/13/22 16:00 Pulse Ox 100 07/13/22 16:00 O2 Del Method 07/13/22 16:00 BMI result Body Mass Index 35.1 <Jacqueline Tejeda NP - Last Filed: 07/13/22 17:07> Appearance: Alert. Oriented X3. And distress. Eyes: Pupils equal, round and reactive to light. ENT: Pharynx normal. Neck: Normal inspection. Neck supple. CVS: Normal heart rate and rhythm. Respiratory: No respiratory distress. Skin: Skin warm and dry. Normal skin color. Normal skin turgor. Extremities: No lower extremity edema. Gait balance and coordinated. Neuro: No motor deficit. No sensory deficit. Cranial nerves 2-12 intact. <Jacqueline Tejeda NP - Last Filed: 07/13/22 17:07> Course Course Course Narrative: This is an RME: Additional HPI, ROS, PE not included below will be deferred to primary provider. 31-year-old female with history of migraines presenting to the emergency department 3 days a migraine, tells me that this feels like her typical migraine. Patient tells me she is followed by specialist for migraines take sumatriptan however is not helping. Tells me that she can not see out of her right high as it feels like a lazy eye this started with the onset of migraine 3 days ago. No recent imaging of head. Denies fevers, chills. Physical exam patient appears uncomfortable. No meningeal signs. Normal cerebellar function. NIH stroke scale 0. Unremarkable exam. Plan medications, will give Reglan, Benadryl, Toradol, sumatriptan. Will obtain head CT. <BRADY Floyd - Last Filed: 07/13/22 12:27> This is an RME: Additional HPI, ROS, PE not included below will be deferred to primary provider. 31-year-old female with history of migraines presenting to the emergency department 3 days a migraine, tells me that this feels like her typical migraine. Patient tells me she is followed by specialist for migraines take sumatriptan however is not helping. Tells me that she can not see out of her right high as it feels like a lazy eye this started with the onset of migraine 3 days ago. No recent imaging of head. Denies fevers, chills. Physical exam patient appears uncomfortable. No meningeal signs. Normal cerebellar function. NIH stroke scale 0. Unremarkable exam. Plan medications, will give Reglan, Benadryl, Toradol, sumatriptan. Will obtain head CT. 16:10 31-year-old female presents for migraines, states that this migraine is different than her prior because her right eye feels a droopy and has had significant tearing. She does receive his sumatriptan and Banophen from a neurologist for chronic migraines. States that she took ykgv-ikl-xdgbwxa medications in conjunction with prescribed medications with poor effect. Provider in triage ordered head CT which is negative for acute findings. Patient is receiving medications upon my assessment. Patient is neurovascularly intact, afebrile, and able to speak in complete sentences without difficulty. NIH stroke scale 0. Nicholas coma scale 15. 16:45 patient states feel much better, and her headache is virtually gone. Will give Fioricet and Reglan for home usage. Patient does understand that she should take Benadryl with Reglan. She also knows that she must follow up with her prior specialist to update them that medications that they prescribed her not effective. Patient verbalized understanding of discharge instructions. Verbalized understandings of signs and symptoms indicating need for emergent intervention. <Jacqueline Tejeda NP - Last Filed: 07/13/22 17:07> Medications Administered Discontinued Medications Generic Name Dose Route Start Last Admin Trade Name Freq PRN Reason Stop Dose Admin Diphenhydramine HCl 50 mg 07/13/22 12:26 07/13/22 16:14 Diphenhydramine Hcl 50 Mg/Ml Vial IVPUSH 07/13/22 12:27 50 mg ONCE ONE Administration Ketorolac Tromethamine 30 mg 07/13/22 12:19 07/13/22 16:16 Ketorolac Tromethamine 15 Mg/Ml Vial IM 07/13/22 12:20 30 mg ONCE ONE Administration Metoclopramide HCl 10 mg 07/13/22 12:26 07/13/22 16:18 Metoclopramide Hcl 10 Mg/2 Ml Vial IVPUSH 07/13/22 12:27 10 mg ONCE ONE Administration <BRADY Floyd - Last Filed: 07/13/22 12:27> Medications Administered Discontinued Medications Generic Name Dose Route Start Last Admin Trade Name Freq PRN Reason Stop Dose Admin Diphenhydramine HCl 50 mg 07/13/22 12:26 07/13/22 16:14 Diphenhydramine Hcl 50 Mg/Ml Vial IVPUSH 07/13/22 12:27 50 mg ONCE ONE Administration Ketorolac Tromethamine 30 mg 07/13/22 12:19 07/13/22 16:16 Ketorolac Tromethamine 15 Mg/Ml Vial IM 07/13/22 12:20 30 mg ONCE ONE Administration Metoclopramide HCl 10 mg 07/13/22 12:26 07/13/22 16:18 Metoclopramide Hcl 10 Mg/2 Ml Vial IVPUSH 07/13/22 12:27 10 mg ONCE ONE Administration <Jacqueline Tejeda NP - Last Filed: 07/13/22 17:07> Medical Decision Making Differential Diagnosis Differential Diagnoses: The differential diagnosis associated with the presentation includes <Jacqueline Tejeda NP - Last Filed: 07/13/22 17:07> CVA, subdural, migraine <Jacqueline Tejeda NP - Last Filed: 07/13/22 17:07> Independent Interpretation I performed an independent interpretation of an: CT Scan <Jacqueline Tejeda NP - Last Filed: 07/13/22 17:07> Radiology Impression Discussion of test interpretation with radiology: I have reviewed the radiologist's reading. <Jacqueline Tejeda NP - Last Filed: 07/13/22 17:07> Radiologist Impression: EXAMINATION: CT HEAD WITHOUT CONTRAST CLINICAL INFORMATION: Severe headache. COMPARISON: None. TECHNIQUE: Contiguous axial imaging was performed from the skullbase to vertex without intravenous administration of contrast. This CT examination was performed using dose optimization techniques as appropriate, variously including the following: *Automated exposure control *Adjustment of mA and/or kV according to patient size (this includes techniques or standardized protocols for targeted exams where dose is matched to indication/reason for exam; i.e. extremities or head) *Use of iterative reconstruction technique DLP: 670 mGy-cm. FINDINGS: There is no evidence of acute intracranial hemorrhage or territorial infarction. No abnormal mass effect or midline shift is seen. Flower to white matter differentiation is well preserved. No extra-axial fluid collections are identified. The ventricles are normal in size. There is no abnormal attenuation within the brain parenchyma. The osseous structures and soft tissues are normal. The mastoid air cells are well aerated. There is a 2 cm retention cyst in the left sphenoid sinus and mild mucosal thickening in the posterior ethmoid air cells. CT/CT head/brain wo IV con IMPRESSION: No acute intracranial pathology. <SHERMAN Pat Last Filed: 07/13/22 17:07> External Record Review External record reviewed: Inpatient record, Outpatient record, Prior outpatient labs and Prior outpatient radiology <SHERMAN Pat Last Filed: 07/13/22 17:07> Prescription Management I considered prescription management with: Pain Medication <Jacqueline Tejeda NP - Last Filed: 07/13/22 17:07> Discharge Plan Discharge Clinical Impression: Migraine, Tension headache, Nausea, Vomiting <BRADY Floyd - Last Filed: 07/13/22 12:27> Patient Disposition: Home, Self-Care <BRADY Floyd Last Filed: 07/13/22 12:27> Instructions: Migraine Headache (ED), Acute Nausea and Vomiting (ED) <BRADY Floyd Last Filed: 07/13/22 12:27> Additional Instructions: You were evaluated for migraine headache unrelieved by the med patient that were due by your prior provider. Please request an appointment with that specialist to evaluate your medication regimen For migraine regimen, I prescribed Reglan for nausea. Take this medication as needed. Take this medication with 25 mg of Benadryl to help reduce side effects. Please take Fioricet as directed. Thank you for choosing this emergency department for evaluation. Please follow-up with primary care physician as needed. Return to the emergency department for any new, concerning, or worsening symptoms. <BRADY Floyd - Last Filed: 07/13/22 12:27> Prescriptions: New emhiatruza-itapoxucpdenl-tsbr [Fioricet] 50-300-40 mg capsule 1 cap PO Q4-6H PRN (Reason: migraine headache) Qty: 10 0RF metoclopramide HCl [Reglan] 10 mg tablet 10 mg PO Q6H PRN (Reason: nausea and vomiting) Qty: 10 0RF diphenhydramine HCl [Benadryl] 25 mg capsule 25 mg PO TID PRN (Reason: nausea and vomiting) Qty: 10 0RF Rx Instructions: Take with Reglan. No Action venlafaxine [Effexor XR] 37.5 mg capsule,extended release 24hr 1 cap PO DAILY clonazepam 1 mg tablet 1 tab PO BID PRN (Reason: Anxiety) sumatriptan succinate [Imitrex] 50 mg tablet 50 mg PO BID PRN (Reason: Headache) Rx Instructions: Take 1 tab for migraine HAWKINS, may repeat dose after 3 hrs if needed ibuprofen 800 mg tablet 1 tab PO TID diphenhydramine HCl [Banophen] 25 mg capsule 2 cap PO Q4-6H PRN (Reason: itch) ferrous sulfate 325 mg (65 mg iron) tablet 1 tab PO BID docusate sodium 100 mg capsule 1 cap PO BID <BRADY Floyd - Last Filed: 07/13/22 12:27>
[2022-07-13 12:24] VITALS: BP 145/79; PULSE 70; RESP 18; TEMP 36.2; O2SAT 99; BMI 35.1
[2022-07-13 16:00] VITALS: BP 130/77; PULSE 70; RESP 18; TEMP 36.8; O2SAT 100
[2022-07-13] MEDS: diphenhydrAMINE HCL 50 MG/ML VIAL IVPUSH (16:14)
[2022-07-13] MEDS: Ketorolac Tromethamine 15 MG/ML VIAL 30 MG IM (16:16)
[2022-07-13] MEDS: Metoclopramide HCl 10 MG/2 ML VIAL IVPUSH (16:18)
--- NOTE | 2022-07-13 16:20 | PC.NURSE ---
medicated per [facility] service specialist verbal order. vss. medication order placed by [facility] provider and was unable to be administered by nursing prior to arrival in room at 1600.
== END 2022-07-13 17:16 | disposition home or self-care (01) ==
PROVIDERS: Emergency Provider Emergency Medicine; PCP Nurse Practitioner
DX: G43.909 Migraine, unspecified, not intractable, without status migrainosus (principal); G44.209 Tension-type headache, unspecified, not intractable; R11.2 Nausea with vomiting, unspecified; D50.9 Iron deficiency anemia, unspecified
CPT/HCPCS: 70450; 96372; 96374; 96375; 99284; J1200; J1885; J2765

== ENCOUNTER 2022-11-18 09:29 | Outpatient (REF) | payer OTHER, SELFPAY ==
--- NOTE | 2022-11-18 09:35 | EMG_ITS ---
Please see scanned EMG / Nerve Conduction Report. MTDD
== END 2022-11-18 09:30 | disposition home or self-care (01) ==
LOC: HO.NEURO 09:29
PROVIDERS: PCP Nurse Practitioner; Visit Provider Registered Nurse
DX: R20.0 Anesthesia of skin (principal); R20.2 Paresthesia of skin
CPT/HCPCS: 95885; 95910

== ENCOUNTER 2022-12-03 18:08 | Emergency (ER) | payer OTHER, SELFPAY | END 2022-12-03 19:50 | disposition left against medical advice (07) | PROVIDERS: Emergency Provider Emergency Medicine | DX: N93.9 Abnormal uterine and vaginal bleeding, unspecified (principal) ==

== ENCOUNTER 2023-01-26 16:24 | Emergency (ER) | payer OTHER, SELFPAY ==
--- NOTE | ~2023-01-26 | XR_ITS ---
EXAMINATION: XR CHEST CLINICAL INFORMATION: Chest pain The patient is COMPARISON: Frontal view 05/03/20 TECHNIQUE: Frontal view of the chest was obtained. FINDINGS: The mediastinum, sonam, vasculature, lungs and visualized pleural margins are within normal limits. XR/XR chest 1V IMPRESSION: No acute chest disease
--- NOTE | 2023-01-26 16:25 | ECG_ITS ---
Test Reason : CP Blood Pressure : / mmHG Vent. Rate : 079 BPM Atrial Rate : 079 BPM P-R Int : 130 ms QRS Dur : 080 ms QT Int : 368 ms P-R-T Axes : 044 040 026 degrees QTc Int : 421 ms Normal sinus rhythm Normal ECG When compared with ECG of 20-SEP-2020 13:17, No significant change was found Referred By: Consuelo Li Electronically Signed By:BERNADETTE LANDAVERDE
[2023-01-26 16:35] VITALS: PULSE 88; RESP 20; TEMP 36.6; O2SAT 99; BMI 33.5
--- NOTE | 2023-01-26 16:35 | ED.GENADULT ---
HPI - General Adult General Chief complaint: Chest Pain Stated complaint: Chest pain Time Seen by Provider: 01/26/23 23:23 Source: patient and family (Mother) Mode of arrival: ambulatory Limitations: no limitations History of Present Illness HPI narrative: 32-year-old female about 16 weeks with no significant care issue, patient with known history of anxiety currently patient is on hydroxyzine, came in for evaluation of left chest pain with no radiation and feeling skipped heartbeat, patient feels that triggered her anxiety and patient had a panic attack. Pain started this morning and has been constant localized to the left chest wall with no radiation no clear aggravating factor or clear relieving factor. No SOB, no lower extremity swelling or tenderness, no history of DVT or pulmonary embolism. No abdominal pain, no vaginal bleed or discharge. No dysuria, no frequency urination, no hematuria. Related Data Home Medications Medication Instructions Recorded Confirmed clonazepam 1 mg tablet 1 tab PO BID PRN Anxiety 03/06/21 08/13/22 ibuprofen 800 mg tablet 1 tab PO TID 03/06/21 08/13/22 sumatriptan succinate 50 mg tablet 50 mg PO BID PRN Headache 03/06/21 08/13/22 (Imitrex) venlafaxine 37.5 mg 1 cap PO DAILY 03/06/21 08/13/22 capsule,extended release 24 hr (Effexor XR) docusate sodium 100 mg capsule 1 cap PO BID 06/16/22 08/13/22 ferrous sulfate 325 mg (65 mg 1 tab PO BID 06/16/22 08/13/22 iron) tablet Allergies Allergy/AdvReac Type Severity Reaction Status Date / Time No Known Drug Intolerances Allergy Unknown nkda Verified 01/26/23 16:35 Review of Systems Review of Systems: All other systems are reviewed and are negative Constitutional: Reports as per HPI and Reports no additional constitutional complaints Eyes: Reports as per HPI and Reports no additional eye complaints Reports system reviewed and no additional complaints, except as documented Cardiovascular: Reports as per HPI and Reports no additional cardiovascular complaints Respiratory: Reports as per HPI and Reports no additional respiratory complaints Gastrointestinal: Reports as per HPI and Reports no additional gastrointestinal complaints Genitourinary: Reports no additional female genitourinary complaints Musculoskeletal: Reports no additional musculoskeletal complaints Skin/Breast: Reports system reviewed and no additional complaints, except as docu Psychiatric: Reports no additional psychiatric complaints Endocrine: Reports no additional endocrine complaints Hematologic/Lymphatic: Reports no additional hematologic/lymphatic complaints Allergic/Immunologic: Reports no additional allergic/immunologic complaints Reports system reviewed and no additional complaints, except as documented and Reports Abnormal speech present [facility] Past Medical History Medical History delivery delivered Chronic fatigue Menorrhagia with irregular cycle Allergic rhinitis Anxiety and depression Iron deficiency anemia Surgical History Hx of tonsillectomy Hx of appendectomy Family History Family History Family/Other Colon cancer Maternal Aunt Colon cancer Maternal Uncle Colon cancer Maternal Grandmother Breast cancer Family/Other Thrombocytopenia Family/Other Liver cancer Social History Social History Household Members: Children Housing: Apartment Alcohol intake: unknown Patient Tobacco Use Status: Never used Tobacco Smoked in Last 30 Days: No Use of substances other than those prescribed or required for medical reasons: No Advance Directives: No Advance Directives Information Provided: No service: No Current occupational status: unemployed Physical Exam ED Vital Signs: Vital Signs - 24 hr 01/26/23 16:35 01/26/23 21:42 01/26/23 23:12 Temperature 97.8 F 96.8 F Pulse Rate 88 68 69 Respiratory Rate 20 18 13 Blood Pressure 131/63 Pulse Oximetry 99 99 100 Oxygen Delivery Method Room Air Room Air Room Air BMI result Body Mass Index 33.5 Vital signs have been reviewed and appear to be correct. Blood pressure slightly elevated. Heart rate normal. Respiratory rate normal. Temperature normal. Oxygen saturation normal. Appearance: Alert. Oriented X3. No acute distress. Head: Normal external exam. Normocephalic. Atraumatic. No Felton signs noted. No raccoon eyes noted Eyes: PERRLA. EOMI. Conjunctiva and sclera normal. Eyelids normal. ENT: TM's Normal. Pharynx normal. Uvula midline. Moist mucous membranes. No trismus noted. No drooling noted. No muffled voice noted. Neck: Normal inspection. Neck supple. FROM. No adenopathy. Thyroid Normal. No meningeal signs. No neck mass noted. CVS: Normal heart rate and rhythm. Heart sound normal. No murmurs noted. Pulses normal throughout. Respiratory: No respiratory distress. Painless inspiration. Breath sounds normal. No wheezes/rales/rhonchi noted. Chest nontender. No accessory muscle usage noted or decreased air movement noted. Abdomen: Soft and nontender. Bowel sounds normal in all 4 quadrants. No distention noted. No organomegaly noted. No visible injury noted. Back: No CVA tenderness. Full range of motion noted. Skin: Skin warm and dry. Normal skin color. Normal skin turgor. No rashes/lesions/lacerations noted. Extremities: No lower extremity edema. Extremities exhibit normal range of motion. Extremities nontender. Neuro: Oriented X 3. Cranial nerve exam: II-XII are grossly intact No motor deficit. No sensory deficit. Reflexes normal. Course Course Course Narrative: This is an RME: Additional HPI, ROS, PE not included below will be deferred to primary provider. 32 yo f currently 4 months preg presents w/ cp, palpitations and anxiety X1 day. PE benign plan - labs Reevaluation(s) Reevaluation #1: 32-year-old female 4 months presented with chest pain. Patient been having a normal respiratory rate and O2 oxygenation since she has been here. Normal EKG and negative troponin x2. Time: 23:40 Medical Decision Making Differential Diagnosis Differential Diagnoses: The differential diagnosis associated with the presentation includes (ACS, anxiety, pulmonary embolism, DVT, complication, electrolyte abnormality, severe anemia.) Admission/Observation Consideration of admission/observation: Escalation of care including admission/observation considered Lab Data MDM Lab Attestation statement: I reviewed the patient's lab results. 01/26/23 16:49 01/26/23 16:49 Labs: Lab Results 01/26/23 01/26/23 Range/Units 16:49 22:41 WBC 9.7 (4.8-10.8) X10*3/uL RBC 3.98 L (4.20-5.50) X10*6/uL Hgb 10.8 L (12.0-16.0) g/dl Hct 31.2 L (37.0-47.0) % MCV 78.4 L (80.0-98.0) fL MCH 27.1 (27.0-33.0) pg MCHC 34.6 (31.0-35.0) g/dl RDW 14.4 (11.0-16.0) % Plt Count 210 (160-400) X10*3/uL MPV 9.2 L (9.4-12.3) fL Immature Gran % (Auto) 0.4 (0.0-0.4) % Neut % (Auto) 77.5 H (45-73) % Lymph % (Auto) 16.5 L (20-40) % [place] % (Auto) 5.2 (2-11) % Eos % (Auto) 0.2 (0-4) % Baso % (Auto) 0.2 (0-2) % Lymph # (Auto) 1.6 (1.2-4.9) X10*3/uL [place] # (Auto) 0.5 (0.1-1.2) X10*3/uL Eos # (Auto) 0.0 (0.0-0.4) X10*3/uL Baso # (Auto) 0.0 (0.0-0.2) X10*3/uL Abs Immat Gran (auto) 0.04 H (0.00-0.03) X10*3/uL Absolute Neuts (auto) 7.5 (2.0-8.3) x10*3/uL Absolute Nucleated RBC 0.000 (0.0-0.012) X10*3/uL Nucleated RBC % (auto) 0.0 (0.0-0.2) /100WBC Sodium 135 (135-145) mmol/L Potassium 3.6 (3.3-5.1) mmol/L Chloride 106 (96-108) mmol/L Carbon Dioxide 19 L (22-29) mmol/L Anion Gap 14 (12-20) BUN 4 L (9-16) mg/dL Creatinine 0.57 (0.5-1.4) mg/dL Estim Creat Clear Calc 140.3 Estimated GFR > 60 Random Glucose 93 (60-115) mg/dL Calcium 9.4 D (8.4-10.2) mg/dL Magnesium 1.8 (1.6-2.6) mg/dL Total Bilirubin 0.3 (0.0-1.0) mg/dL AST 11 (5-31) U/L ALT 8 (0-31) U/L Alkaline Phosphatase 111 (39-117) U/L Troponin I High Sens < 2.7 < 2.7 (<3.5-17.0) ng/L Total Protein 7.3 (6.5-8.0) g/dL Albumin 3.7 (3.5-5.0) g/dL Beta HCG, Quant 08378 mIU/mL Independent Interpretation I performed an independent interpretation of an: EKG (Normal sinus rhythm at 79 beats per minutes, normal axis deviation, normal intervals, no ST-T changes, no change from previous EKG.) and Plain X-Ray (Chest: No acute chest disease.) Radiology Impression Discussion of test interpretation with radiology: I have reviewed the radiologist's reading. Discharge Plan Discharge Clinical Impression: Anxiety, Chest pain Patient Disposition: Home, Self-Care Instructions: Anxiety (ED) Prescriptions: No Action venlafaxine [Effexor XR] 37.5 mg capsule,extended release 24hr 1 cap PO DAILY clonazepam 1 mg tablet 1 tab PO BID PRN (Reason: Anxiety) sumatriptan succinate [Imitrex] 50 mg tablet 50 mg PO BID PRN (Reason: Headache) Rx Instructions: Take 1 tab for migraine HAWKINS, may repeat dose after 3 hrs if needed ibuprofen 800 mg tablet 1 tab PO TID ferrous sulfate 325 mg (65 mg iron) tablet 1 tab PO BID docusate sodium 100 mg capsule 1 cap PO BID Referrals: Dorothy Hughes, [employer] [Primary Care Provider] -
[2023-01-26 16:54] LABS: MANUAL DIFF FLAG NO
[2023-01-26 16:57] LABS: Basophils Percent Auto 0.2 % (0-2); Eosinophils Percent Auto 0.2 % (0-4); Hematocrit 31.2 % (37.0-47.0); Hemoglobin 10.8 g/dl (12.0-16.0); Imm Gran Abs Auto 0.04 X10*3/uL (0.00-0.03); Imm Gran Pct Auto 0.4 % (0.0-0.4); Lymphocytes Absolute Auto 1.6 X10*3/uL (1.2-4.9); Lymphocytes Percent Auto 16.5 % (20-40); Mean Corpuscular HGB Conc 34.6 g/dl (31.0-35.0); Mean Corpuscular Hemoglobin 27.1 pg (27.0-33.0); Mean Corpuscular Volume 78.4 fL (80.0-98.0); Mean Platelet Volume 9.2 fL (9.4-12.3); Monocytes Absolute Auto 0.5 X10*3/uL (0.1-1.2); Monocytes Percent Auto 5.2 % (2-11); Neutrophils Absolute Auto 7.5 x10*3/uL (2.0-8.3); Neutrophils Percent Auto 77.5 % (45-73); Platelet Count 210 X10*3/uL (160-400); Red Blood Count 3.98 X10*6/uL (4.20-5.50); Red Cell Distribution Width 14.4 % (11.0-16.0); White Blood Count 9.7 X10*3/uL (4.8-10.8)
[2023-01-26 17:12] LABS: Alanine Aminotransferase 8 U/L (0-31); Albumin Level 3.7 g/dL (3.5-5.0); Alkaline Phosphatase 111 U/L (39-117); Anion Gap 14 (12-20); Aspartate Amino Transferase 11 U/L (5-31); Bilirubin Total 0.3 mg/dL (0.0-1.0); Blood Urea Nitrogen 4 mg/dL (9-16); Calcium 9.4 mg/dL (8.4-10.2); Carbon Dioxide 19 mmol/L (22-29); Chloride 106 mmol/L (96-108); Creatinine Clr Calc Pharmacy 140.3; Estimated Glomerular Filt Rate > 60; Glucose Random 93 mg/dL (60-115); Magnesium 1.8 mg/dL (1.6-2.6); Potassium 3.6 mmol/L (3.3-5.1); Sodium 135 mmol/L (135-145); Total Protein 7.3 g/dL (6.5-8.0)
[2023-01-26 17:23] LABS: Troponin-I High Sensitivity < 2.7 ng/L (<3.5-17.0)
[2023-01-26 17:43] LABS: HCG Quantitative 22434 mIU/mL
[2023-01-26 21:42] VITALS: BP 131/63; PULSE 68; RESP 18; TEMP 36; O2SAT 99
[2023-01-26 23:08] LABS: Troponin-I High Sensitivity < 2.7 ng/L (<3.5-17.0)
[2023-01-26 23:12] VITALS: PULSE 69; RESP 13; O2SAT 100
[2023-01-26 23:15] VITALS: PULSE 86
== END 2023-01-26 23:53 | disposition home or self-care (01) ==
PROVIDERS: Physician Assistant; Emergency Provider Emergency Medicine; PCP Registered Nurse
DX: O26.892 Other specified pregnancy related conditions, second trimester (principal); F41.9 Anxiety disorder, unspecified; R07.9 Chest pain, unspecified; Z3A.16 16 weeks gestation of pregnancy
CPT/HCPCS: 36415; 71045; 80053; 83735; 84484; 84702; 85025; 93005; 99283; 99285

== ENCOUNTER 2023-02-25 11:00 | Outpatient (REF) | payer OTHER, SELFPAY | END 2023-02-25 11:01 | disposition home or self-care (01) | LOC: HO.MDS 11:00 | PROVIDERS: Visit Provider Internal Medicine | DX: D50.8 Other iron deficiency anemias (principal) | CPT/HCPCS: 96365; J1756 ==

== ENCOUNTER 2023-03-03 11:13 | Outpatient (REF) | payer OTHER, SELFPAY | END 2023-03-03 11:14 | disposition home or self-care (01) | LOC: HO.MDS 11:13 | PROVIDERS: Visit Provider Internal Medicine | DX: D50.8 Other iron deficiency anemias (principal) | CPT/HCPCS: 96365; J1756 ==

== ENCOUNTER 2023-03-23 10:50 | Outpatient (REF) | payer OTHER, SELFPAY | END 2023-03-23 10:51 | disposition home or self-care (01) | LOC: HO.MDS 10:50 | PROVIDERS: Visit Provider Internal Medicine | DX: D50.8 Other iron deficiency anemias (principal) | CPT/HCPCS: 96365; J1756 ==

== ENCOUNTER 2023-07-17 13:48 | Emergency (ER) | payer OTHER, SELFPAY ==
[2023-07-17] VITALS (8 sets, daily range): BP systolic 143–170; BP diastolic 76–89; PULSE 58–70; RESP 14–18; TEMP 36.7–36.8; O2SAT 98–100; BMI 35.0
--- NOTE | 2023-07-17 | ECG_ITS ---
Test Reason : CHEST PAIN Blood Pressure : / mmHG Vent. Rate : 057 BPM Atrial Rate : 057 BPM P-R Int : 162 ms QRS Dur : 078 ms QT Int : 408 ms P-R-T Axes : 010 039 026 degrees QTc Int : 397 ms Sinus bradycardia Otherwise normal ECG When compared with ECG of 26-JAN-2023 16:41, No significant change was found Referred By: Deepti Weber Electronically Signed By:DIPTI PEREZ
--- NOTE | 2023-07-17 14:06 | ED_ITS ---
HPI - General Adult General Chief complaint: General Medical Stated complaint: hbp had baby 07/12/23 ? preclampsia Time Seen by Provider: 07/17/23 14:57 Source: patient Mode of arrival: ambulatory Limitations: no limitations History of Present Illness HPI narrative: Patient is a 32 year old assigned female at with a history of pre- eclampsia presenting to the emergency department today with a headache and abdominal pain. Patient states that she delivered her baby on 07/12/2023 and has been having increased headaches, swelling in her legs, and abdominal pain. Patient states that she previously had pre-eclampsia and is not on any medication for it at this time. Patient denies any dizziness, lightheadedness, nausea, vomiting, fever, chills, blurry vision, double vision, loss of vision, chest pain, difficulty breathing, shortness of breath, back pain, night sweats, pain with urination, increased urinary frequency, increased urinary urgency, blood in her urine or stool, syncope or a near syncopal episode, recent trauma or falls, bowel incontinence, bladder incontinence, bowel retention, bladder retention, or any other complaints at this time. Onset (ago): day(s) Relieving factors: none Exacerbating factors: none Associated symptoms: headaches Treatments prior to arrival: none Related Data Home Medications Medication Instructions Recorded Confirmed clonazepam 1 mg tablet 1 tab PO BID PRN Anxiety 03/06/21 08/13/22 ibuprofen 800 mg tablet 1 tab PO TID 03/06/21 08/13/22 sumatriptan succinate 50 mg tablet 50 mg PO BID PRN Headache 03/06/21 08/13/22 (Imitrex) venlafaxine 37.5 mg 1 cap PO DAILY 03/06/21 08/13/22 capsule,extended release 24 hr (Effexor XR) docusate sodium 100 mg capsule 1 cap PO BID 06/16/22 08/13/22 ferrous sulfate 325 mg (65 mg 1 tab PO BID 06/16/22 08/13/22 iron) tablet Allergies Allergy/AdvReac Type Severity Reaction Status Date / Time No Known Drug Intolerances Allergy Unknown nkda Verified 07/17/23 14:05 Review of Systems 2 Constitutional: Constitutional: Reports no additional constitutional complaints, Denies chills, Denies fever(s), Reports headache(s) and Denies night sweats Eyes: Eyes: Reports no additional eye complaints, Denies blurry vision, Denies change in vision, Denies diplopia, Denies eye discharge, Denies loss of vision and Denies eye pain ENT: Denies dizziness and Reports headache(s) Cardiovascular: Cardiovascular: Reports no additional cardiovascular complaints, Denies chest pain, Reports leg edema, Denies lightheadedness, Denies Loss of Consciousness and Denies dyspnea Respiratory: Respiratory: Reports no additional respiratory complaints and Denies dyspnea Gastrointestinal: Gastrointestinal: Reports no additional gastrointestinal complaints, Reports abdominal pain, Denies melena, Denies hematochezia, Denies change in bowel habits and Denies change in stool character Genitourinary: Genitourinary: Denies hematuria, Denies urinary frequency, Denies dysuria, Denies urinary incontinence, Denies urinary hesitancy and Denies urinary urgency Musculoskeletal: Musculoskeletal: Reports no additional musculoskeletal complaints, Denies numbness and Denies tingling Neurologic: Denies dizziness, Reports headache(s), Denies loss of vision, Denies numbness and Denies tingling Psychiatric: Psychiatric: Reports no additional psychiatric complaints Endocrine: Endocrine: Reports no additional endocrine complaints Hematologic/Lymphatic: Hematologic/Lymphatic: Reports no additional hematologic/lymphatic complaints Allergic/Immunologic: Allergic/Immunologic: Reports no additional allergic/immunologic complaints PMFSH Past Medical History Attestation statement: The following information was validated with the patient. Source: old records reviewed and nursing notes reviewed Medical History delivery delivered Chronic fatigue Menorrhagia with irregular cycle Allergic rhinitis Anxiety and depression Iron deficiency anemia Surgical History Hx of tonsillectomy Hx of appendectomy Family History Family History Family/Other Colon cancer Maternal Aunt Colon cancer Maternal Uncle Colon cancer Maternal Grandmother Breast cancer Family/Other Thrombocytopenia Family/Other Liver cancer Social History Social History Household Members: Children Housing: Apartment Alcohol intake: unknown Patient Tobacco Use Status: Never used Tobacco Smoked in Last 30 Days: No Use of substances other than those prescribed or required for medical reasons: No service: No Current occupational status: unemployed Physical Exam ED Vital Signs: Vital Signs - 24 hr 07/17/23 14:06 07/17/23 15:22 Temperature 98.3 F 98.1 F Pulse Rate 70 60 Respiratory Rate 18 18 Blood Pressure 169/89 H 170/89 H Pulse Oximetry 99 100 Oxygen Delivery Method Room Air Room Air BMI result Body Mass Index 35.0 Const General: cooperative, no acute distress, alert and awake Nutritional Appearance: well nourished Orientation/consciousness: patient oriented x3 Limitations: no limitations HENMT Head: Yes normal to inspection and Yes atraumatic Ears: hearing grossly normal bilaterally and external ears normal General nose exam: Normal external nose present, no nasal discharge noted and no epistaxis Face and sinus: Yes normal facial exam, No abrasion and No laceration Mouth: Normal oral and palatal mucosa present, no drooling and no muffled voice Eyes General: appearance normal, both eyes and all related structures Periorbital: periorbital findings normal Eyelids: Yes eyelids normal Conjunctivae: conjunctivae normal Pupils: Equal, round and reactive pupils present EOM: EOMs intact bilaterally Neck Neck: Yes normal visual inspection, Yes full ROM and Yes no lymphadenopathy Chest Chest palpation & inspection: normal inspection of the chest Resp Effort & Inspection: normal respiratory effort and able to speak in complete sentences GI Inspection: Yes normal to inspection Neuro General: patient oriented x3 and moves all extremities Cranial nerves: Yes Equal, round and reactive pupils present Cognition (Neuro): normal cognition Motor exam (neuro): 5/5 motor strength present throughout Sensory Exam: Normal double simultaneous stimulation for sensation Coordination: [id number] test normal Extrem General: Yes normal to inspection, Yes full ROM and Yes capillary refill normal Psych Appearance: grossly normal Mental Status: mental status grossly normal Affect: normal affect Attitude: cooperative Thought process: Normal thought process present Thought content: Normal thought content present Insight: Good insight present (Psych) Course Course Course Narrative: RME:?32 yo female hx of uncomplicated vaginal delivery 07/12/23 (baby still in nicu at [facility] d/t heart condition) here w/ right abd pain that began yesterday. endorses left sided headache. admits to feeling anxious as her child is still at the hospital. History of appendectomy. Still has gallbladder. currently pumping. BP at home today was 174/110. no hx of HTN. basic labs, US ordered Full HPI, ROS and PE to be performed by the primary ED provider. Medications Administered Generic Name Dose Route Start Last Admin Trade Name Freq PRN Reason Stop Dose Admin Magnesium Sulfate 20 gm in 500 mls @ 50 mls/hr 07/17/23 15:15 07/17/23 15:16 Magnesium Sulfate/H2o IV 2 gm/hr .Q10H MERCED 50 mls/hr Administration 2 GM/HR Discontinued Medications Generic Name Dose Route Start Last Admin Trade Name Freq PRN Reason Stop Dose Admin Labetalol HCl 20 mg 07/17/23 15:01 07/17/23 15:12 Labetalol Hcl 100 Mg/20 Ml Vial IVPUSH 07/17/23 15:02 20 mg ONCE ONE Administration Medical Decision Making Medical Decision Making [facility] Narrative: Patient is a 32 year old assigned female at with a history of pre- eclampsia and recent child presenting to the emergency department today with a headache, abdominal pain, and bilateral lower leg swelling. Patient's physical exam was unremarkable. Patient's blood work was unremarkable. Patient was immediately given IV magnesium and IV lebatolol. I called and spoke to Dr. Barrera who agreed to direct admission to [facility] under Dr. Clifford @[id number]. I explained my physical exam findings as well as all test results to the patient. I answered all questions asked by the patient. Patient verbalized agreement and understanding with this treatment plan and transfer. Differential Diagnosis Differential Diagnoses: The differential diagnosis associated with the presentation includes Pre-eclampsia HTN urgency HTN emergency Admission/Observation Consideration of admission/observation: Escalation of care including admission/observation considered Patient transferred. Consult Healthcare Provider Management of the patient was discussed with: Catia Designer (spoke to NUPUR Tripathi, from [facility] as noted in the MDM Rationale portion of this note.) Lab Data [facility] Lab Attestation statement: I reviewed the patient's lab results. My interpretation of these results are in the MDM Rationale portion of this note. 07/17/23 14:26 07/17/23 14:26 Labs: Lab Results 07/17/23 Range/Units 14:26 WBC 9.4 (4.8-10.8) X10*3/uL RBC 3.47 L (4.20-5.50) X10*6/uL Hgb 10.0 L (12.0-16.0) g/dl Hct 29.3 L (37.0-47.0) % MCV 84.4 (80.0-98.0) fL MCH 28.8 (27.0-33.0) pg MCHC 34.1 (31.0-35.0) g/dl RDW 13.4 (11.0-16.0) % Plt Count 230 (160-400) X10*3/uL MPV 9.1 L (9.4-12.3) fL Immature Gran % (Auto) 1.1 H (0.0-0.4) % Neut % (Auto) 76.2 H (45-73) % Lymph % (Auto) 15.7 L (20-40) % [place] % (Auto) 5.7 (2-11) % Eos % (Auto) 1.1 (0-4) % Baso % (Auto) 0.2 (0-2) % Lymph # (Auto) 1.5 (1.2-4.9) X10*3/uL [place] # (Auto) 0.5 (0.1-1.2) X10*3/uL Eos # (Auto) 0.1 (0.0-0.4) X10*3/uL Baso # (Auto) 0.0 (0.0-0.2) X10*3/uL Abs Immat Gran (auto) 0.10 H (0.00-0.03) X10*3/uL Absolute Neuts (auto) 7.2 (2.0-8.3) x10*3/uL Absolute Nucleated RBC 0.000 (0.0-0.012) X10*3/uL Nucleated RBC % (auto) 0.0 (0.0-0.2) /100WBC Sodium 140 (135-145) mmol/L Potassium 4.3 (3.3-5.1) mmol/L Chloride 106 (96-108) mmol/L Carbon Dioxide 24 (22-29) mmol/L Anion Gap 14 (12-20) BUN 13 (9-16) mg/dL Creatinine 0.54 (0.5-1.4) mg/dL Estim Creat Clear Calc 151.4 Estimated GFR > 60 Random Glucose 77 (60-115) mg/dL Calcium 8.8 D (8.4-10.2) mg/dL Magnesium 1.7 (1.6-2.6) mg/dL Total Bilirubin 0.3 (0.0-1.0) mg/dL AST 24 (5-31) U/L ALT 29 (0-31) U/L Alkaline Phosphatase 179 H (39-117) U/L Total Protein 6.1 L (6.5-8.0) g/dL Albumin 3.1 L (3.5-5.0) g/dL Lipase 23 (8-78) U/L Critical Care Time Critical Care Time Critical Care Time: Yes Total Critical Care Time: 125 Attestation: I spent 125 minutes of Critical Care Time with this patient. This does not include time spent on separately reported billable procedures. Discharge Plan Discharge Clinical Impression: Preeclampsia in period Patient Disposition: [facility] Transfer Details: [facility] - Direct admission under Dr. Clifford, accepted by Dr. Barrera Prescriptions: No Action venlafaxine [Effexor XR] 37.5 mg capsule,extended release 24hr 1 cap PO DAILY clonazepam 1 mg tablet 1 tab PO BID PRN (Reason: Anxiety) sumatriptan succinate [Imitrex] 50 mg tablet 50 mg PO BID PRN (Reason: Headache) Rx Instructions: Take 1 tab for migraine HAWKINS, may repeat dose after 3 hrs if needed ibuprofen 800 mg tablet 1 tab PO TID ferrous sulfate 325 mg (65 mg iron) tablet 1 tab PO BID docusate sodium 100 mg capsule 1 cap PO BID
[2023-07-17 14:30] LABS: MANUAL DIFF FLAG NO
[2023-07-17 14:32] LABS: Basophils Percent Auto 0.2 % (0-2); Eosinophils Absolute Auto 0.1 X10*3/uL (0.0-0.4); Eosinophils Percent Auto 1.1 % (0-4); Hematocrit 29.3 % (37.0-47.0); Imm Gran Pct Auto 1.1 % (0.0-0.4); Lymphocytes Absolute Auto 1.5 X10*3/uL (1.2-4.9); Lymphocytes Percent Auto 15.7 % (20-40); Mean Corpuscular HGB Conc 34.1 g/dl (31.0-35.0); Mean Corpuscular Hemoglobin 28.8 pg (27.0-33.0); Mean Corpuscular Volume 84.4 fL (80.0-98.0); Mean Platelet Volume 9.1 fL (9.4-12.3); Monocytes Absolute Auto 0.5 X10*3/uL (0.1-1.2); Monocytes Percent Auto 5.7 % (2-11); Neutrophils Absolute Auto 7.2 x10*3/uL (2.0-8.3); Neutrophils Percent Auto 76.2 % (45-73); Platelet Count 230 X10*3/uL (160-400); Red Blood Count 3.47 X10*6/uL (4.20-5.50); Red Cell Distribution Width 13.4 % (11.0-16.0); White Blood Count 9.4 X10*3/uL (4.8-10.8)
[2023-07-17 14:47] LABS: Alanine Aminotransferase 29 U/L (0-31); Albumin Level 3.1 g/dL (3.5-5.0); Alkaline Phosphatase 179 U/L (39-117); Anion Gap 14 (12-20); Aspartate Amino Transferase 24 U/L (5-31); Bilirubin Total 0.3 mg/dL (0.0-1.0); Blood Urea Nitrogen 13 mg/dL (9-16); Calcium 8.8 mg/dL (8.4-10.2); Carbon Dioxide 24 mmol/L (22-29); Chloride 106 mmol/L (96-108); Creatinine Clr Calc Pharmacy 151.4; Estimated Glomerular Filt Rate > 60; Glucose Random 77 mg/dL (60-115); Lipase 23 U/L (8-78); Magnesium 1.7 mg/dL (1.6-2.6); Potassium 4.3 mmol/L (3.3-5.1); Sodium 140 mmol/L (135-145); Total Protein 6.1 g/dL (6.5-8.0)
[2023-07-17] MEDS: Labetalol HCL 100 MG/20 ML VIAL 20 MG IVPUSH ×2 (15:12→15:52)
--- NOTE | 2023-07-17 15:25 | PC.NURSE ---
Pt coming from home, reports 2 days of RUQ ABD pain (10/10, sharp, worsens with breathing), headache, lower extremity edema and high blood pressure. Pt is 5 days , delivered baby on 07/11. Pt is A0. Pt does have hx of preeclampsia with previous . Pt reports no complications during her , all symptoms started 2 days ago. Pt is alert and oriented, breathing even and unlabored, skin WNL. Pt is on bedside site monitor, sinus bradycardia. Pt noted to be hypertensive. Pt noted to uncomfortable, reports RUQ ABD pain is bothering her the most. IV established in left AC 20G and pt is medicated per MAR. Pt denies any CP, SOB, blurred vision, vomiting, fevers, cough, or weakness. Pt denies any changes in urination. Minor swelling noted to bilat ankles.
--- NOTE | 2023-07-17 15:59 | PC.NURSE ---
BP monitored closely, remained hypertensive. Pt also complaining of mid back back starting approx 10 mins ago. Pt requesting pain meds at this time, provider aware.
--- NOTE | 2023-07-17 16:42 | PC.NURSE ---
Report given to [facility] L&D ALICIA Manuel.
[2023-07-17] MEDS: Morphine Sulfate 4 MG/ML CARTRIDGE IVPUSH (16:54)
[2023-07-17] MEDS: hydrALAZINE HCl 20 MG/ML VIAL 5 MG IVPUSH (16:58)
== END 2023-07-17 17:17 | disposition short-term general hospital (02) ==
PROVIDERS: Physician Assistant Medical; Emergency Provider Emergency Medicine; PCP Registered Nurse
DX: O90.9 Complication of the puerperium, unspecified (principal); R51.9 Headache, unspecified; R07.89 Other chest pain; R00.1 Bradycardia, unspecified; Z79.899 Other long term (current) drug therapy
CPT/HCPCS: 36415; 80053; 83690; 83735; 85025; 93005; 96374; 96375; 96376; 99285; J0360; J1920; J2270; J3475

== ENCOUNTER → 2023-07-17 16:05 | Outpatient (BNV) | payer OTHER, SELFPAY | PROVIDERS: Emergency Provider Emergency Medicine; PCP Registered Nurse; Visit Provider Internal Medicine | DX: R07.9 Chest pain, unspecified (principal) | CPT/HCPCS: 93010 ==

== ENCOUNTER 2023-09-01 11:07 | Outpatient (REF) | payer OTHER, SELFPAY ==
[2023-09-02 05:39] LABS: CT PCR NOT DETECTED (Not Detect.); NG PCR NOT DETECTED (Not Detect.)
[2023-09-10 03:14] LABS: HPV mRNA E6/E7 rflx Not Detected (Not Detected)
== END 2023-09-01 11:08 | disposition home or self-care (01) ==
LOC: HO.LNP 11:07
PROVIDERS: PCP Registered Nurse; Visit Provider Obstetrics & Gynecology
DX: N93.9 Abnormal uterine and vaginal bleeding, unspecified (principal); Z20.2 Contact with and (suspected) exposure to infections with a predominantly sexual mode of transmission
CPT/HCPCS: 0353U; 87624; 88142; 99212

== ENCOUNTER 2023-09-01 11:07 | Outpatient (AMB) | payer OTHER, SELFPAY ==
--- NOTE | 2023-09-01 11:09 | A.OFFVIS_ITS ---
Vital Signs 09/01/23 11:11 Height 5 ft 2 in Weight 179 lb BMI 32.7 BP 118/72 Intake Visit Reasons: Tubal Consult Intake Note: Patient here for tubal consults , patient have 4 children Communications Controller Required: No Information Interpreted: non-clinical & clinical Accompanied by: Self / Same As Patient Allergies No Known Drug Intolerances Allergy (Unknown, Verified 09/01/23 11:13) nkda Is last menstrual period known: Yes Last menstrual period: 08/17/23 HPI Comments Details: Presenting to discuss different options of control including ster ilization. The patient is complaining of heavy menstrual cycles associated with passage of blood clots and pelvic cramping. Last H&H on 07/17 was 02/21.3 PFSH Medical History delivery delivered Chronic fatigue Menorrhagia with irregular cycle Allergic rhinitis Anxiety and depression Iron deficiency anemia Surgical History Hx of tonsillectomy Hx of appendectomy Family History Family/Other Colon cancer Maternal Aunt Colon cancer Maternal Uncle Colon cancer Maternal Grandmother Breast cancer Family/Other Thrombocytopenia Family/Other Liver cancer Social History Household Members: Children Housing: Apartment Alcohol intake: unknown Patient Tobacco Use Status: Never used Tobacco service: No Current occupational status: unemployed Sexual orientation: Straight/Heterosexual Gender identity: Female Female Reproductive History Menstrual Age of Menarche: 11 Duration of menses: 3-5 days Date of last menstrual period: 08/17/23 Review of Systems Const All systems reviewed & are unremarkable except as noted in HPI and below Card Reports as per HPI Resp Reports as per HPI GI Reports as per HPI and Reports no additional complaints Reports as per HPI Physical Exam Vital Signs: BMI result Body Mass Index 32.7 Const General: cooperative, healthy appearing and comfortable Chest Chest palpation & inspection: normal inspection of the chest and normal palpation of entire chest wall Breast/axilla inspection: normal inspection of the breasts and normal inspection of the axillae Breast/axilla palpation: normal palpation of the breasts, normal palpation of the axillae and no axillary lymphadenopathy Resp Effort & Inspection: normal respiratory effort Auscultation: clear to auscultation bilaterally Percussion: percussion normal Cardio Palpation: normal PMI Rate: regular rate Rhythm: regular rhythm Heart sounds: no murmurs and no rubs Peripheral pulses: Peripheral pulses 2+ throughout GI Inspection: Yes normal to inspection Palpation (GI): Soft to palpation, nontender, no guarding, not rigid and No hepatosplenomegaly present Percussion: Yes normal to percussion Auscultation: normal bowel sounds Rectal Exam - Female: deferred General: Yes bladder normal to palpation External Female Exam: No lesion Speculum Exam - Vagina: normal appearance of the vagina, normal palpation, normal vaginal discharge and not erythematous Speculum Exam - Cervix: normal appearance of the cervix and normal palpation Bimanual exam- vagina & uterus: normal bimanual exam, normal palpation, uterine size normal, bladder normal to palpation, consistency normal and normal palpation Bimanual Exam- Adnexa, other: normal adnexae, no masses and no tenderness Assessment & Plan Assessment & Plan (1) Abnormal uterine bleeding (AUB): Code(s): N93.9 - Abnormal uterine and vaginal bleeding, unspecified Category: Medical Plan: Co testing done, GC and chlamydia taken CBC, prolactin, TSH, HCG, and pelvic ultrasound ordered. Discussed with the patient the different causes of abnormal bleeding including thyroid disorders, uterine and ovarian patholog and other potential causes. Discussed with the patient the work up including CBC (to r/o anemia), TSH, prolactin, pelvic Ultrasound. All questions answered and the patient verbalized understanding. Instructed the patient to schedule follow-up appointment in 2 weeks. (2) Family planning: Code(s): Z30.09 - Encounter for other general counseling and advice on contraception Category: Social Hx Plan: Discussed with the patient the different options of control including control pills/Nuvaring, DMPA, different types of IUD ?s, sterilization. All the pros, cons, risks and benefits of each were discussed with the patient. The patient decided to go ahead with an IUD, so a more detailed discussion was carried on including types (Progesterone, Copper), mechanism of action, risks (infection, uterine perforation, failure with ectopic , septic AB, dysmenorrhea with Paraguard, others) benefits (efficient contraceptive method, hypo menorrhea with Progesterone IUD, others) GC/CG were taken and the patient was asked to call day one of next cycle for IUD insertion. Meanwhile instructions given the patient to use backup method for control to prevent . All questions answered, the patient verbalized understanding Coding Level of Care Code New Pt Level 3 (48194) Diagnoses Abnormal uterine bleeding (AUB) N93.9 Family planning Z30.09
[2023-09-01 11:11] VITALS: BP 118/72; BMI 32.7
== END 2023-09-01 11:53 | disposition home or self-care (01) ==
LOC: HO.HWS 11:07
PROVIDERS: PCP Registered Nurse; Visit Provider Obstetrics & Gynecology
DX: N93.9 Abnormal uterine and vaginal bleeding, unspecified (principal); Z30.09 Encounter for other general counseling and advice on contraception
CPT/HCPCS: 99213

== ENCOUNTER 2023-11-09 09:39 | Outpatient (REF) | payer OTHER, SELFPAY ==
[2023-11-09 10:32] LABS: Hematocrit 35.1 % (37.0-47.0); Hemoglobin 11.7 g/dl (12.0-16.0); Mean Corpuscular HGB Conc 33.3 g/dl (31.0-35.0); Mean Corpuscular Hemoglobin 27.1 pg (27.0-33.0); Mean Corpuscular Volume 81.3 fL (80.0-98.0); Mean Platelet Volume 9.2 fL (9.4-12.3); Platelet Count 249 X10*3/uL (160-400); Red Blood Count 4.32 X10*6/uL (4.20-5.50); Red Cell Distribution Width 13.7 % (11.0-16.0); White Blood Count 9.9 X10*3/uL (4.8-10.8)
[2023-11-09 10:42] LABS: Estimated Average Glucose 88 mg/dL; Hemoglobin A1c % 4.7 % (<6.0)
[2023-11-09 11:21] LABS: Alanine Aminotransferase 24 U/L (0-31); Albumin Level 4.3 g/dL (3.5-5.0); Alkaline Phosphatase 86 U/L (39-117); Anion Gap 11 (12-20); Aspartate Amino Transferase 17 U/L (5-31); Bilirubin Total 0.6 mg/dL (0.0-1.0); Blood Urea Nitrogen 10 mg/dL (9-16); Calcium 9.2 mg/dL (8.4-10.2); Carbon Dioxide 26 mmol/L (22-29); Chloride 103 mmol/L (96-108); Cholesterol 283 mg/dL (<200); Estimated Glomerular Filt Rate > 60; Glucose Random 88 mg/dL (60-115); HDL Cholesterol 45 mg/dL (>40); Iron 56 mcg/dL (30-160); LDL Cholesterol Calculated 205 mg/dL (<100); Percent Iron Saturation 16 % (15-50); Potassium 4.3 mmol/L (3.3-5.1); Sodium 136 mmol/L (135-145); Total Iron Binding Capacity 354 mcg/dL (228-428); Total Protein 7.7 g/dL (6.5-8.0); Triglycerides 169 mg/dL (<150); Unsaturated Iron Binding 298 ug/dL
[2023-11-09 11:25] LABS: Ferritin 36 ng/mL (10-122); TSH reflex Free T4 1.01 uIU/mL (0.32-4.0); Vitamin D 25-OH Total 24.6 ng/mL (>30)
[2023-11-09 11:29] LABS: Syphilis Screen Nonreactive (Nonreactive)
[2023-11-09 11:30] LABS: HBS Num1 9.34 mIU/mL (0-7.99); HBc Num1 0.38 S/CO (0.00-0.79); HBsAGNum1 0.46 S/CO (0.00-0.99); HIV AB/AG Nonreactive (Nonreactive); HIV Num 1 0.06 S/CO (0.00-0.99); Hepatitis B Core Antibody Nonreactive (Nonreactive); Hepatitis B Surface Antigen Negative (Negative); ~HepC Num1 0.27 S/CO (0.00-0.79); ~Hepatitis C Antibody Nonreactive (Nonreactive)
[2023-11-09 14:39] LABS: HBS Num2 9.35 mIU/mL (0-7.99); HBS Num3 9.27 mIU/mL (0-7.99); ~Hepatitis B Surface Antibody GRAYZONE (Nonreactive)
[2023-11-09 18:08] LABS: CT PCR NOT DETECTED (Not Detect.); NG PCR NOT DETECTED (Not Detect.)
== END 2023-11-09 09:40 | disposition home or self-care (01) ==
LOC: HO.LAB 09:39
PROVIDERS: PCP Student in an Organized Health Care Education/Training Program; Visit Provider Student in an Organized Health Care Education/Training Program
DX: Z00.00 Encounter for general adult medical examination without abnormal findings (principal); Z13.1 Encounter for screening for diabetes mellitus; Z13.89 Encounter for screening for other disorder
CPT/HCPCS: 80053; 80061; 82306; 82728; 83036; 83540; 84443; 85027; 86704; 86706; 86780; 86803; 87340; 87389; 87491; 87591

== ENCOUNTER 2024-02-18 09:32 | Outpatient (REF) | payer OTHER, SELFPAY ==
[2024-02-18 11:35] LABS: Alanine Aminotransferase 21 U/L (0-31); Albumin Level 4.1 g/dL (3.5-5.0); Alkaline Phosphatase 74 U/L (39-117); Anion Gap 10 (12-20); Aspartate Amino Transferase 21 U/L (5-31); Bilirubin Total 0.5 mg/dL (0.0-1.0); Blood Urea Nitrogen 8 mg/dL (9-16); Carbon Dioxide 24 mmol/L (22-29); Chloride 106 mmol/L (96-108); Cholesterol 245 mg/dL (<200); Estimated Glomerular Filt Rate > 60; Glucose Random 87 mg/dL (60-115); HDL Cholesterol 40 mg/dL (>40); LDL Cholesterol Calculated 178 mg/dL (<100); Potassium 4.1 mmol/L (3.3-5.1); Sodium 136 mmol/L (135-145); Total Protein 7.6 g/dL (6.5-8.0); Triglycerides 139 mg/dL (<150)
== END 2024-02-18 09:33 | disposition home or self-care (01) ==
LOC: HO.HHCL 09:32
PROVIDERS: Visit Provider Student in an Organized Health Care Education/Training Program
DX: E66.812 Obesity, class 2 (principal); E66.09 Other obesity due to excess calories; Z68.35 Body mass index [BMI] 35.0-35.9, adult
CPT/HCPCS: 36415; 80053; 80061

== ENCOUNTER 2024-11-27 09:08 | Outpatient (REF) | payer OTHER, SELFPAY ==
--- OUTSIDE RECORDS SUMMARY | 2024-11-27 09:34 | XMS_ITS | Clinical Summary ---
Author Organization [employer] [facility] Address [address] [place] [address] Care Team Providers Care Manufacturing Technology Analyst Name Role Phone Unavailable Primary Care Provider Unavailabl e Allergies No known active allergies Medications Medication Sig Dispensed Refills Start Date End Date Status docusate sodium (COLACE) 100 MG capsuleIndications:Co nstipation Take 1 capsule (100 mg total) by mouth 2 (two) times a day. 0 01/09/2023 Active Aspirin Low Dose 81 MG chewable tabletIndications:Pre eclampsia Chew 2 tablets (162 mg total) by mouth every morning. 0 01/05/2023 Active sertraline (ZOLOFT) 100 MG tabletIndications:Orr ic Disorder Take 1 tablet (100 mg total) by mouth daily. 30 tablet 0 02/16/2023 Active ferrous sulfate 325 (65 FE) MG tabletIndications:Iro n Deficiency Take 1 tablet (325 mg total) by mouth every morning with breakfast. 30 tablet 0 02/16/2023 Active folic acid (FOLVITE) tablet 1 mgIndications:supplem ent Take 1 tablet (1 mg total) by mouth daily. 30 tablet 0 02/16/2023 Active melatonin 3 MG TABS tabletIndications:Ins omnia Take 2 tablets (6 mg total) by mouth every night at bedtime. 60 tablet 0 02/15/2023 Active Multiple Vitamin (thera) TABS tabletIndications:Nut ritional Support Take 1 tablet by mouth daily. 30 tablet 0 02/16/2023 Active thiamine mononitrate (THIAMINE) 100 MG tabletIndications:Thi amine Deficiency Take 1 tablet (100 mg total) by mouth daily. 30 tablet 0 02/16/2023 Active traZODone (DESYREL) 50 MG tabletIndications:Ins omnia Take 1 tablet (50 mg total) by mouth every night at bedtime as needed for sleep (insomnia). 20 tablet 0 02/15/2023 Active Active Problems Problem Noted Date Diagnosed Date Panic disorder without agora phobia with severe panic attacks 02/11/2023 Suicidal ideations 02/10/2023 Estimated Date of Delivery Comme nts Yes 07/22/2023 Family History Medical History Relation Name Comments No Sig Med Hx Brother No Sig Med Hx Daughter No Sig Med Hx Father No Sig Med Hx Maternal Grandfather No Sig Med Hx Maternal Grandmother No Sig Med Hx Mother No Sig Med Hx Paternal Grandfather No Sig Med Hx Paternal Grandmother No Sig Med Hx Sister No Sig Med Hx Son Relation Name Status Comments Brother Daughter Father Maternal Grandfather Maternal Grandmother Mother Paternal Grandfather Paternal Grandmother Sister Son Social History Tobacco Use Types Packs/Day Years Used Date Smoking Tobacco: Never Smokeless Tobacco: Never Alcohol Use Standard Drinks/Week Comments Never 0 (1 standard drink = 0.6 oz pur e alcohol) Estimated Date of Delivery Comme nts Yes 07/22/2023 Sex and Gender Information Value Date Recorded Sex Assigned at Female 02/09/2023 9:23 PM EDT Gender Identity Not on file Sexual Orientation Not on file Job Start Date Occupation Industry Not on file Not on file Not on file Last Filed Vital Signs Vital Sign Reading Time Taken Comments Blood Pressure 93/64 02/15/2023 8:12 AM EDT Pulse 105 02/15/2023 8:12 AM EDT Temperature 36.4 C (97.6 F) 02/15/2023 8:11 AM EDT Respiratory Rate 16 02/15/2023 8:11 AM EDT Oxygen Saturation 99% 02/15/2023 8:12 AM EDT Inhaled Oxygen Concentration - - Weight 79.1 kg (174 lb 6.4 oz) 02/14/2023 8:00 A M EDT Height 157.5 cm (5' 2 ) 02/10/2023 2:29 PM EDT Body Mass Index 31.9 02/10/2023 2:29 PM EDT Plan of Treatment Health Maintenance Due Date Last Done Comments Hepatitis C Screening 1989 Depression Screening 2001 Preventative Health Evaluation 10/24/2007 Cervical Cancer Screening (Pap Smear) 2010 COVID-19 Vaccine ( season) 2023 12/12/2020 Influenza Vaccine (#1) 2024 2, 02/20/2021, 01/30/2020, Additional history exists DTap / Tdap / Td (8 - Td or Tdap) 06/25/2030 06/25/2020, 01/22/2016, 06/24/1994, Additional history exists RSV Adult > 60+ Yrs or (1 - 1-dose 75+ series) 2064 Hepatitis B Vaccines Completed 12/26/2007, 12/12/1998, 07/25/1998 Pneumococcal Vaccine Aged Out No long er eligible based on patient's age to complete this topic RSV Ped < 20 months Aged Out No longe r eligible based on patient's age to complete this topic Guarantor Name Account Type Relation to Patient Date of Phone Billing Address Bharti Langford Personal/Family Self [address] [place] [id number] [facility] Self [address] [place] [id number] Advance Directives For more information, please contact: [phone] Latest Code Status on File Code Status Date Activated Date Inactivated Comments Full Code 02/10/2023 12:03 AM 02/15/2023 10:21 PM T his code status was ascertained in the following way: per unit protocol.
--- OUTSIDE RECORDS SUMMARY | 2024-11-27 09:34 | XMS_ITS | Encounter Summary ---
Author Organization [employer] Address [address] [place] [address] [address] [place] [address] Care Team Providers Care Casting Machine Adjuster Name Role Phone Genet Haines MD Primary Care Pro vider Reason for Visit * Reason Comments Med Change Request Encounter Details Date Type Department Care Team ([facility] st Contact Info) Description 10/17/2024 Refill [facility] MEDICINE [address] [place] [address] Genet Haines MD [address] [place] [address] Class 2 obesity due to excess calories without serious comorbidity with body mass index (BMI) of 35.0 to 35.9 in adult Social History Tobacco Use Types Packs/Day Years Used Date Smoking Tobacco: Never Smokeless Tobacco: Never Alcohol Use Standard Drinks/Week Comments Yes 0 (1 standard drink = 0.6 oz pur e alcohol) social Alcohol Answer Date Recorded Frequency of Alcohol Consumption Not on file 02/15/2024 Average Number of Drinks Not on file 024 Frequency of Binge Drinking Not on file 01/25 Score 0 02/15/2024 Depression Answer Date Recorded Patient Health Questionnaire-9 Score 1 10/02/2024 Patient Health Questionnaire-9 Score 1 10/02/2024 Last PHQ-9: Questionnaire Data Not on file 0 10/02/2024 Housing Stability Answer Date Recorded What is your housing situation today? I have [employer] 09/28/[address] you li ve. Do you have problems with any of the following? None of the above 09/28/2023 Food Insecurity Answer Date Recorded Within the past 12 months, y ou worried that your food would run out before you got money to buy more: Never True 09/28/2023 Within the past 12 months,th e food you bought just didn't last and you didn't have enough money to get more: Never True 07/2023 Transportation Answer Date Recorded In the past 12 months, has l ack of transportation kept you from medical appts, meetings, work or from getting things needed for daily living? No 09/28/2023 Utilities Answer Date Recorded In the past 12 months, has t he [employer] gas, oil or water [employer] threatened to shut off services in your home? No 09/28/2023 Depression Answer Date Recorded Patient Health Questionnaire-2 Score 0 10/02/2024 Internet Access Answer Date Recorded Internet Access Q1 Yes 09/25/2024 Internet Access Q2 Not on file 09/25/2024 Comments Unknown Sex and Gender Information Value Date Recorded Sex Assigned at Female 02/23/2022 10:15 AM EDT Legal Sex Female 10:15 AM EDT Gender Identity Female 02/23/2022 10:15 AM EDT Sexual Orientation Straight 02/23/2022 10 :15 AM EDT documented as of this encounter Miscellaneous Notes * Telephone Encounter - Ying Flores - 10/18/2024 12:30 PM EDT PA initiated on Covermymeds for Zepbound 12.5mg. Approval/denial pending. [place]: [id number] documented in this encounter Plan of Treatment Upcoming Encounters Date Type Department Care Team (Late st Contact Info) Description 12/06/2024 10:00 AM EDT Office Visit [facility] MEDICINE [address] [place] [id number] Genet Haines MD [address] [place] [address] documented as of this encounter Visit Diagnoses Diagnosis Class 2 obesity due to excess calories without serious comorbidity with body mass index (BMI) of 35.0 to 35.9 in adult documented in this encounter Additional Health Concerns Assessment Noted Time PHQ-9 Depression Total Score: 1 10/03/19 25 3:23 PM EDT documented as of this encounter Care Teams Casting Machine Adjuster Relationship Specialty Start Date End Date Genet Haines MD [address] [place] [phone] PCP - General Internal Medicine 10/28/22 documented as of this encounter
--- OUTSIDE RECORDS SUMMARY | 2024-11-27 09:34 | XMS_ITS | Clinical Summary ---
Author Organization [facility] Address [address] [place] [id number] Phone Care Team Providers Care Logistics Tech Name Role Phone Dorothy Hughes [facility] Primary Care Provider [phone] Allergies No known active allergies Medications busPIRone (BUSPAR) 5 mg tablet Take 5 mg by mouth 2 Times Daily. 1 Active cetirizine HCl (ZYRTEC ORAL) Take by mouth. A ctive cholecalciferol (VITAMIN D-3) 50 mcg (2,000 unit) capsule Take 1 Tablet by mouth daily. 3 Active docusate sodium (COLACE) 100 mg capsule TAKE 1 CAPSULE BY MOUTH TWICE A DAY 3 Active clonazePAM (KlonoPIN) 1 mg tablet Take 1 mg by mouth 2 times daily as needed. Active omega-3 acid ethyl esters (LOVAZA) 1 gram capsule TAKE 2 CAPSULES BY MOUTH 2 TIMES DAILY 4 Active propranoloL (INDERAL) 80 mg tablet Take 80 mg by mouth 3 times daily. Active sertraline (ZOLOFT) 100 mg tablet Take 1 Tablet by mouth daily. 4 Active sertraline (ZOLOFT) 50 mg tablet TAKE 2 TABLETS BY MOUTH EVERY DAY 4 Active triamcinolone (KENALOG) 0.1 % cream APPLY TOPICALLY IF NEEDED IN THE MORNING AND AT BEDTIME (PAIN AND SWELLING). 3 Active ascorbic acid (VITAMIN C) 250 mg tablet TAKE 1 TABLET (250 MG) BY MOUTH IN THE MORNING 3 Active acetaminophen (TYLENOL) 325 mg tablet TAKE 3 TABLETS BY MOUTH EVERY 8 HOURS NEEDED FOR PAIN 4 Active ibuprofen (ADVIL,MOTRIN) 600 mg tablet Take 1 tablet (600 mg total) by mouth every 6 (six) hours. 4 Active naratriptan (AMERGE) 2.5 mg tablet TAKE 1 TABLET BY MOUTH ONCE NEEDED FOR MIGRAINE HEADACHE 4 Active Fish OiL 300-1,000 mg capsule take 2 capsules by mouth 2 times daily 4 Active Zepbound 5 mg/0.5 mL injection inject 0.5 ml (5 mg) under the skin 1 (one) time per week. 5 Active Active Problems Problem Noted Date Diagnosed Date Panic disorder without agora phobia with severe panic attacks 02/11/2023 Suicidal ideations 02/10/2023 Susceptible to Varicella (no n-immune), currently in first trimester 01/28/2023 Overview (03/30/2024): Varicella equivocal Offer vaccination PP Low grade squamous intraepit h lesion on cytologic smear cervix (lgsil) 03/13/2020 Overview (03/30/2024): 2018 PAP- Ascus, neg HPV Repeat PAP one year 02/2020 PAP LSIL, neg HPV. Plan: repeat PAP 10/25/2020 PAP- Insufficient sample 01/28/2021 PAP, normal Anxiety and depression 01/23/2020 Overview (03/30/2024): 11-24-2022 rx'd medication by pcp at [facility] Clonazepam 1mg prn for panic attacks Busprione 5 mg bid daily Pt stopped meds 4 days ago. She felt like they were not helping in general. She speaks to a counselor q 2 weeks She states she has been on a waiting list for a therapist x 1 yr. Referral to behavioral health sent 11/24/2022 01/04/2023 pt states she d/c meds but has taken clonazepam 0.5mg prn for increased anxiety/panic attacks. Pt missed most recent appt with her therapist because her son was at the ed for asthma exacerbation. Pt will reach out and r/s. She is aware I will notify provider of increased anxiety. Pt was given a list of behavioral healty offices with intake folder 02/05/23 -phone call from [facility] crisis intervention . Pt is in ER being evaluated for anxiety. She was also seen on 02/03/23 in ER for anxiety and given Vistaril. Claudia will call [facility] for further anxiety treatment since pt states vistaril is not helping. Pt admitted [facility] 02/04/2023 -02/09/2023 - pt transferred to [facility] on 02/09 for inpatient admission (patient meets inpatient criteria for depression with suicidal ideation) Last Assessment & Plan: EPDS 26 After extensive discussion regarding patient's feelings/symptoms and concern for suicidal ideation I recommend that she go to the [facility] ER for crisis evaluation. She is in agreement. She states she will take her mother and the children home, then her father will drive her to the ER. I called [facility] ER to let them know to expect her. I discussed with her that, given her history of depression requiring medications prior to , then stopping her medications during , significantly increases her risk of developing depression. We reviewed the importance of mental health for the overall health of the . She would absolutely benefit from restarting medications but will defer today as she will be evaluated by [facility] ER. We also discussed today that her worsening depression may be related to the fact that this is not a desired . We discussed that termination is available through [facility] or [facility] if this is something she would consider. She stated that would not be an option for her but she did appear to consider this. Rx Zofran provided for management of nausea, which appears to be anxiety related. I have also referred this patient to [facility] for moms and am waiting for a call back. Patient instructed to call with updates when possible. Headache, migraine 01/23/2020 Overview (03/30/2024): 11-24-2022 Pt followed by [facility] neurology most recent visit 10-13-22. Medical record sent to scanning She is rx'd naratriptan 2.5mg po prn for breakthrough migranes, last took 4 days ago and topiramate 100mg q HS . Pt advised to call neurologist today to discuss med mgmt. 11/24/2022 Topiramate may cause harm if administered to a patient. An increased risk of oral clefts (cleft lip and/or palate) and for being small for gestational age (SGA) has been observed following in utero exposure. 12-24-22 pt called neuro after frequent migranes and no relief with tylenol. Pt states neurologist will not treat her for migranes during and meds were previously discontinued. 12-25-2022 pt told to take excedrin tension and benadryl . She reports she has used with good relief but feels it causes tachycardia/palpitations. Pt states she has a hx of palpitations which neuro and her pcp are aware of. Per pt all cardiac work up has been normal . Resolved Problems Problem Noted Date Diagnosed Date Resolved Date Anemia, antepartum 05/08/2023 Overview (03/30/2024): Cutoff hemoglobin levels: First trimester <11.0 Second trimester <10.5 Third trimester <11.0 <10.0 -If microcytic anemia with MCV<80, then order ferritin Ferritin low - tx with oral Fe (sulfate or gluconate) QOD, repeat CBC 2-3 weeks -If normalized, continue until 6 weeks -If not normalized, make sure compliant and if so, refer to Heme for iron infusion Ferritin normal - likely chronic illness issue, consider other causes, repeat CBC at 28 week labs -If macrocytic anemia with MCV>100, then order B12 and folate levels and treat prn, recheck in 2-3 weeks -If normalized, continue until 6 weeks -If not, make sure compliant and if so, refer to Heme COVID-19 01/04/2023 06/21/2024 Overview (03/30/2024): 01/04/2023 pt states 3 weeks ago she had covid Obesity in 01/23/2020 025 Overview (03/30/2024): BMI 33.2 - prior to getting pt was taking weekly ozempic and going to the gym several days a week. Pt aware physical fitness is fine but she should d/c any dietary supplements and d/c ozempic- ALICIA MARCELINO 11/24/2022 referral to nutrition was sent per pt request as she was on weight loss journey prior to getting - ALICIA MARCELINO HgbA1C and 1 hour GTT at initial labs ASA 162mg at 12 weeks until delivery Detailed anatomy ultrasound Repeat GTT 24-28 weeks if early is normal Pre-preg BMI 35-39.9: NST weekly at 37 weeks Pre-preg BMI >40: NST weekly at 34 weeks Pre-preg BMI >45: NST weekly at 32 weeks Growth US at 32 and 36 weeks for BMI >40 BMI of 50 by 28wks transfer to [facility] DVT prophylaxis- Lovenox if CS and BMI >35 Immunizations Name Administration Dates Next Due Influenza Quadravalent, MDCK , 0.5ml, preservative free (Flucelvax) 6mo and older 02/22/2023 Influenza, Unspecified 01/09/2020 Moderna SARS-CoV-2 COVID-19, mRNA, LNP-S, preservative free 01/06/2021,12/12/2020 Pfizer SARS-CoV-2 COVID-19, mRNA, LNP-S, preservative free 12/12/2020 Tdap Tetanus diptheria acell ular pertussis (Boostrix; Adacel) 7yo and older 05/06/2023,06/25/2020 Surgical History Surgery Date Site/Laterality Comments APPENDECTOMY 2011 PROCEDURE: [place] APPENDECTOMY; COMMENT: [facility] TONSILLECTOMY ADENOIDECTOMY, BILATERAL MYRINGOTOMY AND TUBES 2004 PROCEDURE: RI TONSILLECTOMY & ADENOIDECTOMY <AGE 12; COMMENT: [facility] SECTION 2007 PROCEDURE: HISTORICAL DELIVERY; COMMENT: BREECH PRESENTATION TUBAL LIGATION 03/26/2024 - 04/25/2024 Medical History Medical History Date Comments Venereal disease 2009 DX:Venereal dis ease; COMMENT: + Chlamydia Abnormal cytological finding in specimen from cervix DX:Abnormal cytological find ing in specimen from cervix Anxiety and depression DX:Anxiet y and depression; COMMENT: rx'd medication by pcp Headache, migraine 10/13/2022 DX:Headache, migraine; COMMENT: followed by [facility] neuro Obesity affecting 01/04/2023 DX:O besity affecting ; COMMENT: bmi 33 Iron deficiency anemia 01/10/2020 DX:Iron d eficiency anemia; COMMENT: followed by heme/onc blood transfusions at [facility] Edagr 01-10-2020 H&H 10.3 / 32.7 Pt states she gets weekly iron transfusions via IV. She also takes iron BID po. Next heme/onc appt 03/08/2020 11:30am Vitamin D deficiency DX:Vitamin D deficiency Preeclampsia in period 2020 DX:Preeclampsia in period High cholesterol DX:High cholest luz Covid-19 01/04/2023 01/04/2023 pt sta scotty 3 weeks ago she had covid Family History Medical History Relation Name Comments Hypertension Father Heart attack Maternal Grandfather Stroke Maternal Grandfather Hypertension Maternal Grandmother Other: Other Maternal Grandmother sepsis Hypertension Mother Other: down syndrome Other 1 cousin on fathers side Other: down syndrome Other 2 cousin on moms side Heart attack Paternal Grandfather Stroke Paternal Grandfather Hypertension Paternal Grandmother Other: Other Paternal Grandmother dementi a Hypertension Sister Relation Name Status Comments Father Alive Maternal Grandfather Maternal Grandmother Alive Mother Alive Other 1 Alive Other 2 Alive Paternal Grandfather Paternal Grandmother Sister Alive Social History Tobacco Use Types Packs/Day Years Used Date Smoking Tobacco: Former Smokeless Tobacco: Never Alcohol Use Standard Drinks/Week Comments Not Currently 0 (1 standard drink = 0.6 oz pur e alcohol) Housing Instability Answer Date Recorde d Are you worried that in the next 2 months you may not have stable housing? No 06/15/2024 Food Access & Nutrition Answer Date Rec orded Do you have access to a vari ety of food including fruits and vegetables? No 06/15/2024 Health Literacy Answer Date Recorded How often do you need to hav e someone help you when you read instructions, pamphlets, or other written material from your doctor or pharmacy? Never 06/15/2024 Caregiver: How often do you need to have someone help you when you read instructions, pamphlets, or other written material from your doctor or pharmacy? Not on file 06/15/2024 Financial Risk Answer Date Recorded How hard is it for you to pa y for the very basics like food, housing, medical care, and air conditioning / heating? Patient declined 06/15/2024 Transportation Answer Date Recorded Has the lack of transportati on kept you from meetings, work, or from getting things needed for daily living? No Has the lack of transportati on kept you from medical appointments or from getting medications? No 06/15/2024 Social Isolation Answer Date Recorded How often do you feel lonely or isolated from th ose around you? Never 06/15/2024 Food Risk Answer Date Recorded Within the past 12 months we worried whether our food would run out before we got money to buy more. Never true 06/15/2024 Within the past 12 months th e food we bought just didn't last and we didn't have money to get more. Never true 06/15/2024 Dependent Care Answer Date Recorded Do you need help finding or paying for care for your loved ones. For example, child guidance counselor or elderly care for an older adult? Yes 06/15/2024 Education Answer Date Recorded Do you think completing more education or training, like finishing a GED, going to college, or learning a trade, would be helpful for you? No 06/15/2024 Employment and Income Answer Date Recor ded During the last four weeks, have you been actively looking for work? No 06/15/2024 Living Situation Answer Date Recorded What is your living situation? 0 06/15/2024 Comments No Sex and Gender Information Value Date Recorded Sex Assigned at Not on file Legal Sex Female 4:57 AM EST Gender Identity Not on file Sexual Orientation Not on file Occupation Industry Job Start Date Job End Date unemployed Not on file Not on file Not on file Obstetrics History Para Term AB IAB SAB Ectopic Multiple Livin g Live Births 4 4 4 4 4 Date Outcome GA Total Labor Labor/2nd/3rd Weight Sex Type Anes PTL Chani A1 A5 Name Clin 2007 Term 38w 0d 3714 g (131 oz) F CS-Un spec Epidur al N Livin g Suheil y [place] [facility] Complications:Breech present ation Delivery Location:[facility] 2010 Term 40w 0d 4026 g (142 oz) M Epidur al N Livin g Willia m [place] [facility] Complications:None Delivery Location:[facility] 2020 Term 38w 5d 3260 g (115 oz) F Vag-S pont Epidur al N Livin g 8 9 [place] [facility] Complications:Shoulder Dysto magdalena,Severe pre-eclampsia,Carrier of group B Streptococcus Delivery Location:[facility] Comments:admitted to b 6 days after , admitted x 3 days for PIH, severe, fob 2 2023 Term 38w 4d 3118 g (110 oz) F N Livjuwan billingsley nberg Delivery Location[facility] Comments:[facility] PPD 5 for severe pih Last Filed Vital Signs Vital Sign Reading Time Taken Comments Blood Pressure 124/83 06/21/2024 3:10 PM EST Pulse 75 06/21/2024 3:10 PM EST Temperature - - Respiratory Rate - - Oxygen Saturation - - Inhaled Oxygen Concentration - - Weight 85.3 kg (188 lb 1.6 oz) 06/21/2024 3:10 P M EST Height 157.5 cm (5' 2 ) 06/21/2024 3:10 PM EST Body Mass Index 34.4 06/21/2024 3:10 PM EST Plan of Treatment Health Maintenance Due Date Last Done Comments HPV Vaccines (2 - 3-dose series) 08/17/2006 07/20/2006 Medicare Annual Wellness Visit 03/29/2022 COVID-19 Vaccine ( season) 2023 06/24/2021, 01/06/2021, 12/12/2020, Additional history exists Hypertension/CHF/CAD Annual BMP Blood Test 06/22/2024 02/11/2023, 01/26/2023 Influenza Vaccine (#1) 2024 , 02/22/2023, 02/24/2022, Additional history exists Social Influencers of Health Screening 06/15/2025 06/15/2024 Cholesterol Screening (Lipid Panel) 02/17/2029 02/18/2024 Cervical Cancer Screening: HPV 06/21/2029 06/21/2024, 01/28/2021 DTaP,Tdap,and Td Vaccines (10 - Td or Tdap) 05/06/2033 05/06/2023, 06/25/2020, 01/22/2016, Additional history exists MMR Vaccines Completed 06/24/1993, 11/27/1991 IPV Vaccines Completed 06/24/1994, 08/06/1991, 08/24/1990, Additional history exists Varicella Vaccines Aged Out 12/12/1998 No longer eligible based on patient's age to complete this topic HIB Vaccines Completed 08/24/2000, 11/27/1991 HIV Screening Completed 11/09/2023, 01/26/2023 Hepatitis C Screening Completed 11/09/2023, 023 Hepatitis B Vaccines Completed 03/15/2024, 02/15/2024, 12/26/2007, Additional history exists Depression Screening Completed 06/15/2024, 08/19/19 24 Hepatitis A Vaccines Aged Out No long er eligible based on patient's age to complete this topic Meningococcal ACWY Vaccine Aged Out N o longer eligible based on patient's age to complete this topic Meningococcal B Vaccine Aged Out No l onger eligible based on patient's age to complete this topic Pneumococcal Vaccine: Pediatrics (0 to 5 Years) and At-Risk Patients (6 to 49 Years) Aged Out No longer eligible based on patient's age to complete this topic RSV Immunization Patients Under 20 months Aged Out No longer eligible based on patient's age to complete this topic Procedures Procedure Name Priority Date/Time Associated Diagnosis Comments HPV WITH REFLEX GENOTYPE Routine 06/21/2024 3:24 PM EST Encounter for well woman exam with routine gynecological exam Screening for cervical cancer DEPRESSION SCREENING Routine 08/19/2023 HIV SCREENING Routine 01/26/2023 ANNUAL BMP BLOOD TEST Routine 01/26/2023 HEPATITIS C SCREENING Routine 01/04/2023 from Last 3 Months or Most Recently Relevant to Health Maintenance Results * HPV with reflex genotype (06/21/2024 3:24 PM EST) HPV Negative Negative LAB MICROBIOLOGY METHOD 06/22/2024 3:53 PM EST [facility] Brushing/Spatula Cervix uteri structure / Unknown 06/21/2024 3:24 PM EST 06/22/2024 5:55 AM EST Sloane Griffiths CNM LAB MOLECULAR DIAGNOSTICS ORD ERABLES Final Result [facility] [address] [place] [address], * Depression Screening (08/19/2023) Depression Screening Abstracted Historical Provider HEALTH MAINTENANCE Final Result * Annual BMP Blood Test (01/26/2023) Pathologist [facility] Annual BMP Blood Test Abstracted Historical Provider MD HEALTH MAINTENANCE Final Result * HIV Screening (01/26/2023) [facility] HIV Screening Abstracted Historical Provider HEALTH MAINTENANCE Final Result * Hepatitis C Screening (01/04/2023) Pathologist [facility] Hepatitis C Screening Abstracted Historical Provider HEALTH MAINTENANCE Final Result from Last 3 Months or Most Recently Relevant to Health Maintenance Insurance [facility] [address] [phone] [employer] MEDICARE Member Subscriber Plan / Payer (Ef fective 2017-Present) Name:Tammy Langford Relation to Subscriber:Self Name:Tammy Langford Payer ID:[id number] Group ID:[id number] Type:Not on file Address: [facility] [address] [phone] Care Teams Logistics Tech Relationship Specialty Start Date End Date Dorothy Hughes FNP [address] [place] [address] PCP - General 12/31/22
[2024-11-27 11:40] LABS: Hematocrit 31.9 % (37.0-47.0); Hemoglobin 10.4 g/dl (12.0-16.0); Mean Corpuscular HGB Conc 32.6 g/dl (31.0-35.0); Mean Corpuscular Hemoglobin 24.9 pg (27.0-33.0); Mean Corpuscular Volume 76.3 fL (80.0-98.0); NRBC Abs Auto 0.000 X10*3/uL (0.0-0.012); NRBC Pct Auto 0.0 /100WBC (0.0-0.2); Platelet Count 270 X10*3/uL (160-400); Red Blood Count 4.18 X10*6/uL (4.20-5.50); White Blood Count 5.9 X10*3/uL (4.8-10.8)
[2024-11-27 11:41] LABS: Hematocrit 32.5 % (37.0-47.0); Hemoglobin 10.4 g/dl (12.0-16.0); Mean Corpuscular HGB Conc 32.0 g/dl (31.0-35.0); Mean Corpuscular Hemoglobin 24.5 pg (27.0-33.0); Mean Corpuscular Volume 76.5 fL (80.0-98.0); NRBC Abs Auto 0.000 X10*3/uL (0.0-0.012); NRBC Pct Auto 0.0 /100WBC (0.0-0.2); Platelet Count 273 X10*3/uL (160-400); Red Blood Count 4.25 X10*6/uL (4.20-5.50); White Blood Count 5.8 X10*3/uL (4.8-10.8)
[2024-11-27 11:42] LABS: Hemoglobin A1C 80.3437 umol/L; Total Hemoglobin (HGBA1C) 2817.4564 umol/L
[2024-11-27 12:06] LABS: Syphilis Screen Nonreactive (Nonreactive)
[2024-11-27 12:09] LABS: Alanine Aminotransferase 17 U/L (0-31); Albumin Level 4.6 g/dL (3.5-5.0); Alkaline Phosphatase 61 U/L (39-117); Anion Gap 8 (12-20); Aspartate Amino Transferase 27 U/L (5-31); Blood Urea Nitrogen 8 mg/dL (9-16); Calcium 9.1 mg/dL (8.4-10.2); Carbon Dioxide 25 mmol/L (22-29); Chloride 109 mmol/L (96-108); Cholesterol 223 mg/dL (<200); Estimated Glomerular Filt Rate > 60; HDL Cholesterol 42 mg/dL (>40); Iron 26 mcg/dL (30-160); Percent Iron Saturation 8 % (15-50); Potassium 4.2 mmol/L (3.3-5.1); Sodium 138 mmol/L (135-145); Total Iron Binding Capacity 337 mcg/dL (228-428); Total Protein 7.9 g/dL (6.5-8.0); Triglycerides 117 mg/dL (<150); Unsaturated Iron Binding 311 ug/dL
[2024-11-27 12:15] LABS: HBS Num1 257.59 mIU/mL (0-7.99); HBc Num1 0.15 S/CO (0.00-0.79); HBsAGNum1 0.42 S/CO (0.00-0.99); HIV Num 1 0.10 S/CO (0.00-0.99); Hepatitis B Surface Antigen Negative (Negative); ~HepC Num1 0.18 S/CO (0.00-0.79); ~Hepatitis B Surface Antibody REACTIVE (Nonreactive); ~Hepatitis C Antibody Nonreactive (Nonreactive)
[2024-11-27 12:22] LABS: Ferritin 14 ng/mL (10-122)
[2024-11-27 12:34] LABS: Ferritin 16 ng/mL (10-122)
== END 2024-11-27 09:09 | disposition home or self-care (01) ==
LOC: HO.HHCL 09:08
PROVIDERS: PCP Student in an Organized Health Care Education/Training Program; Referring Provider Internal Medicine; Visit Provider Student in an Organized Health Care Education/Training Program
DX: Z00.00 Encounter for general adult medical examination without abnormal findings (principal); D50.9 Iron deficiency anemia, unspecified; E78.2 Mixed hyperlipidemia; Z13.1 Encounter for screening for diabetes mellitus; Z11.3 Encounter for screening for infections with a predominantly sexual mode of transmission; Z11.59 Encounter for screening for other viral diseases; Z11.4 Encounter for screening for human immunodeficiency virus [HIV]
CPT/HCPCS: 36415; 80053; 80061; 82306; 82728; 83036; 83540; 84443; 85027; 86704; 86706; 86780; 86803; 87340; 87389